=== PATIENT | female | born 1975 | race Caucasian/White ===

== ENCOUNTER → 2020-04-30 07:46 | Outpatient (CLI) | payer OTHER, SELFPAY ==
--- NOTE | ~2020-04-30 | US_ITS ---
EXAMINATION: US abdomen limited EXAM DATE: 04/30/2020 08:16 INDICATION: R10.11 - Right upper quadrant pain TECHNIQUE: Multiple grayscale and Doppler images of the abdomen right upper quadrant were obtained (b y a technologist who performed the scan) and subsequently reviewed. Comparison is made to prior exami nation from 07/15/2013. FINDINGS: The pancreatic head and body are normal in appearance. The pancreatic tail is not visualized. The l iver has normal echogenicity and contour. There is hyperechoic 1 cm right liver dome lesion. There is no evidence of intrahepatic biliary duct dilation. Portal venous flow was seen in the hepatopedal , normal direction and has normal Doppler waveform. No right-sided hydronephrosis. Common bile duct measures 5 mm, which is normal. The gallbladder wall is normal in thickness, with ex pected amount of distention. No sonographic evidence of pericholecystic fluid. There is no cholelit hiases. Technologist performing exam reports patient did not demonstrate sonographic Borrego's sign. Please note that this sign is less reliable in patients who have received pain medication. IMPRESSION: 1. Small right liver lobe lesion. Liver lesions are nonspecific by ultrasound but this most likely b enign finding given appearance and patient's age. Consider 6 month follow-up. 2. No acute findings. Reviewed, dictated and finalized at location B. DEICER ELEMENT WINDER IMPRESSION: 1. Small right liver lobe lesion. Liver lesions are nonspecific by ultrasound but this most likely benign finding given appearance and patient's age. Conside r 6 month follow-up. 2. No acute findings.
== END ==
PROVIDERS: PCP Family Medicine; Visit Provider Physician Assistant
DX: R10.11 Right upper quadrant pain (principal); K76.9 Liver disease, unspecified
CPT/HCPCS: 76705

== ENCOUNTER → 2020-07-08 16:51 | Outpatient (CLI) | payer OTHER, SELFPAY ==
--- NOTE | ~2020-07-08 | MM_ITS ---
EXAMINATION: MM screening camila BI w shakira HISTORY: Screening TECHNIQUE: Craniocaudal and mediolateral oblique 3-D tomosynthesis images were obtained and synthetic 2-D images were generated. CAD analysis was submitted and interpreted. COMPARISON: 08/05/2008 BREAST PARENCHYMAL COMPOSITION: There are scattered areas of fibroglandular density. FINDINGS: There is no evidence of suspicious mass, calcification, or architectural distortion to sugg est malignancy in either breast. There has been no suspicious interval change. IMPRESSION: 1. No mammographic evidence of malignancy. 2. Recommend routine screening mammography in one year. BI-RADS Category 1: Negative Reviewed, dictated and finalized at location A. SELOR/ART THERAPIST
== END ==
PROVIDERS: Visit Provider Nurse Practitioner
DX: Z12.31 Encounter for screening mammogram for malignant neoplasm of breast (principal)
CPT/HCPCS: 77063; 77067

== ENCOUNTER 2020-07-21 01:57 | Outpatient (CLI) | payer OTHER, SELFPAY ==
[2020-07-21 18:12] LABS: SARS-CoV-2 RNA PCR Negative
== END 2020-07-21 01:58 | disposition home or self-care (01) ==
LOC: ANHCOVIDDT 01:57
PROVIDERS: Family Provider Family Medicine; Visit Provider Internal Medicine Gastroenterology
DX: Z01.812 Encounter for preprocedural laboratory examination (principal); Z20.822 Contact with and (suspected) exposure to COVID-19
CPT/HCPCS: C9803; U0003; U0005

== ENCOUNTER 2020-07-24 01:10 | Day surgery (SDC) | payer OTHER, SELFPAY ==
[2020-07-13 13:48] VITALS: BMI 35.9
--- NOTE | 2020-07-22 15:42 | WPDANESEPPF ---
Anes - Initial Pre Proc Eval Procedure: Operation Date: 07/24/20 11:15 Proposed Procedures p Esophagogastroduodenoscopy - Truong Aranda MD Date/Time: 07/22/20 15:42 Surgeon: Truong Aranda MD Pre Op Diagnosis: abdominal pain Patient Data Age: 44 Gender: F Height: 1.57 m Weight: 89 kg Allergies Allergy/AdvReac Type Severity Reaction Status Date / Time latex Allergy Intermediate RASH Verified 07/24/20 09:58 nut - unspecified Allergy Intermediate Swelling Verified 07/24/20 09:58 of Lip/Tongue/Throat Penicillins Allergy Unknown Itching Verified 07/24/20 09:58 Home Medications Medication Instructions Recorded Confirmed Type bupropion HCl 300 mg 24 hr tablet, 300 mg PO QAM 04/29/19 07/24/20 History extended release spironolactone 100 mg tablet 100 mg PO DAILY 04/29/19 07/24/20 History bupropion HCl 150 mg 24 hr tablet, 150 mg PO DAILY tablet 05/20/20 07/24/20 History extended release lamotrigine 25 mg tablet 25 mg PO DAILY tablet 05/20/20 07/24/20 History lorazepam 1 mg tablet 1 mg PO BID tablet 05/20/20 07/24/20 History oxybutynin chloride 5 mg tablet 5 mg PO HS tablet 05/20/20 07/24/20 History dicyclomine 10 mg capsule 10 mg PO TID PRN #30 cap 06/15/20 07/24/20 Rx baclofen 10 mg tablet See Rx Instructions .ROUTE 07/10/20 07/24/20 Rx .COMPLEX #60 tablet ibuprofen See Rx Instructions .ROUTE 07/13/20 07/24/20 History .COMPLEX PRN Patient hx anesthesia problems: none Family hx anesthesia problems: none PMFSH Past Medical History Medical History (Updated 07/22/20 @ 15:42 by Aldo José DO) Abdominal pain Anxiety Back pain Bipolar disorder IBS (irritable bowel syndrome) Liver lesion Mood disorder Schizophrenia Family History Family History Other Asthma Family history of coronary artery disease Hypertension Social History Social History Smoking status: Never smoker Second hand tobacco smoke exposure: No Alcohol intake: never Substance use type: does not use Living arrangements: with family Spiritual care concerns: No Anes - Eval Final PreProcedure Day of Procedure 07/22/20 15:42 Patient weight: obese Heart: regular rate and rhythm Lungs: clear to auscultation and normal air movement Airway: Mallampati scale class II Neurological: alert and oriented Last oral intake: >/= 8 hours ASA classification: III Emergent: no Anesthetic plan: proceed Anesthesia type and monitoring: general GIVS and standard monitoring Informed Consent: The patient's anesthetic plan and its attendant risks and benefits were discussed with the patient/family/POA. Questions were solicited and answers provided to the satisfaction of the patient/family/POA.
[2020-07-24 09:59] VITALS: BP 130/95; PULSE 110; RESP 19; TEMP 36.2; O2SAT 98; BMI 36.5
[2020-07-24] MEDS: LACTATED RINGERS 1,000 ML 150 ML IV CONT (10:10)
--- NOTE | 2020-07-24 11:00 | PM.HPGS ---
History of Present Illness History of Present Illness Consent: Risks, benefits, and alternatives have been discussed and questions answered. Patient agrees to proceed with procedure. Chief complaint: abdominal pain Narrative: Elizabeth Mustafa is a 44 year old female here with intermittent epigastric/chest discomfort on ppi, she also uses ibuprofen daily for back pain Review of Systems Constitutional: Constitutional: Denies headache(s) and Denies weakness Eyes: Eyes: Denies blurry vision ENT: Reports Normal hearing present, Denies headache(s) and Denies neck pain Cardiovascular: Cardiovascular: Denies chest pain and Denies dyspnea Respiratory: Respiratory: Denies dyspnea Gastrointestinal: Gastrointestinal: Reports no additional gastrointestinal complaints Genitourinary: Genitourinary: Denies dysuria Musculoskeletal: Musculoskeletal: Denies neck pain Integumentary/Breasts: Skin/Breast: Denies dry skin Neurologic: Reports Normal hearing present, Denies headache(s) and Denies weakness Psychiatric: Psychiatric: Denies anxiety Endocrine: Endocrine: Denies change in body appearance Hematologic/Lymphatic: Hematologic/Lymphatic: Denies easy bleeding Allergic/Immunologic: Allergic/Immunologic: Denies urticaria PMF Past Medical History Medical History (Updated 07/22/20 @ 15:42 by Aldo José DO) Abdominal pain Anxiety Back pain Bipolar disorder IBS (irritable bowel syndrome) Liver lesion Mood disorder Schizophrenia Family History Family History Other Asthma Family history of coronary artery disease Hypertension Social History Social History Smoking status: Never smoker Second hand tobacco smoke exposure: No Alcohol intake: never Substance use type: does not use Living arrangements: with family Spiritual care concerns: No Meds Home Medications and Allergies Home Medications Medication Instructions Recorded Confirmed Type bupropion HCl 300 mg 24 hr tablet, 300 mg PO QAM 04/29/19 07/24/20 History extended release spironolactone 100 mg tablet 100 mg PO DAILY 04/29/19 07/24/20 History bupropion HCl 150 mg 24 hr tablet, 150 mg PO DAILY tablet 05/20/20 07/24/20 History extended release lamotrigine 25 mg tablet 25 mg PO DAILY tablet 05/20/20 07/24/20 History lorazepam 1 mg tablet 1 mg PO BID tablet 05/20/20 07/24/20 History oxybutynin chloride 5 mg tablet 5 mg PO HS tablet 05/20/20 07/24/20 History dicyclomine 10 mg capsule 10 mg PO TID PRN #30 cap 06/15/20 07/24/20 Rx baclofen 10 mg tablet See Rx Instructions .ROUTE 07/10/20 07/24/20 Rx .COMPLEX #60 tablet ibuprofen See Rx Instructions .ROUTE 07/13/20 07/24/20 History .COMPLEX PRN Allergies Allergy/AdvReac Type Severity Reaction Status Date / Time latex Allergy Intermediate RASH Verified 07/24/20 09:58 nut - unspecified Allergy Intermediate Swelling Verified 07/24/20 09:58 of Lip/Tongue/Throat Penicillins Allergy Unknown Itching Verified 07/24/20 09:58 Vital Signs Vital Signs - 24 hr 07/24/20 09:59 Temperature 97.1 F L Pulse Rate 110 H Respiratory Rate 19 Blood Pressure 130/95 H Pulse Oximetry 98 Exam Const: General: comfortable and no acute distress HENMT: General nose exam: Normal nares present Eyes: General: appearance normal, both eyes and all related structures Neck: Neck: no JVD Resp: Auscultation: clear to auscultation bilaterally Cardio: Rate: regular rate Rhythm: regular rhythm GI: Inspection: non-distended GI Palp: Yes Soft to palpation Skin: General skin exam: normal color Neuro: General: gait normal Speech: normal speech Extrem: General: normal to inspection Psych: Mental Status: mental status grossly normal Assessment and Plan Assessment and plan (1) Abdominal pain: Code(s): R10.9 - Unspecified abdominal pain Status: A
[2020-07-24] MEDS: BENZOCAINE (*SP) 60 ML SPRAY CAN (HURRICAINE) 1 SPRAY MUCOUS MEM (11:02)
[2020-07-24 11:13] VITALS: BP 127/64; PULSE 94; RESP 14; O2SAT 97
[2020-07-24 11:23] VITALS: BP 110/78; PULSE 85; RESP 15; O2SAT 100
== END 2020-07-24 11:46 | disposition home or self-care (01) ==
PROVIDERS: Family Provider Family Medicine; PCP Family Medicine; Visit Provider Internal Medicine Gastroenterology
PROC: 0DJ08ZZ Inspection of Upper Intestinal Tract, Via Natural or Artificial Opening Endoscopic (ICD-10-PCS; CPT 43235; principal; 2020-07-24 11:15)
DX: R13.10 Dysphagia, unspecified (principal); K29.50 Unspecified chronic gastritis without bleeding; K25.9 Gastric ulcer, unspecified as acute or chronic, without hemorrhage or perforation; K26.9 Duodenal ulcer, unspecified as acute or chronic, without hemorrhage or perforation; F41.9 Anxiety disorder, unspecified; F31.9 Bipolar disorder, unspecified; K58.9 Irritable bowel syndrome, unspecified; K76.9 Liver disease, unspecified; F20.9 Schizophrenia, unspecified; E66.9 Obesity, unspecified; Z68.36 Body mass index [BMI] 36.0-36.9, adult
CPT/HCPCS: 43239; 87081; 88305; C9803; J2001; J2704; J7120; U0003; U0005

== ENCOUNTER 2020-09-03 13:01 | Outpatient (CLI) | payer OTHER, SELFPAY ==
--- NOTE | ~2020-09-03 | XR_ITS ---
EXAMINATION: XR hip RT min 2V DATE: 09/03/2020 13:29 INDICATION: Right hip pain. TECHNIQUE: 2 views of right hip on 3 radiographs were obtained. COMPARISON: None. FINDINGS: Bone alignment is normal. No fracture. Right hip joint space is normal. Surgical clips over lie the pelvis. IMPRESSION: 1. Normal right hip. Reviewed, dictated and finalized at location A. RACTS ATTORNEY IMPRESSION: 1. Normal right hip.
== END 2020-09-03 13:02 ==
LOC: MICIMG 13:02
PROVIDERS: PCP Family Medicine; Visit Provider Anesthesiology
DX: M25.551 Pain in right hip (principal)
CPT/HCPCS: 73502

== ENCOUNTER 2021-02-09 10:46 | Outpatient (CLI) | payer OTHER, SELFPAY ==
--- NOTE | ~2021-02-09 | US_ITS ---
US right upper quadrant INDICATION: Liver disease PROCEDURE: Realtime right upper abdominal ultrasound. COMPARISON: No prior studies for comparison. FINDINGS: The pancreas is normal without focal mass or pancreatic ductal dilation. There is a small hyperechoic mass of the right hepatic lobe measuring 11 mm, likely benign hemangioma in the absence o f known malignancy. There is normal directional flow in the portal vein. The gallbladder is normal without stones, gallbladder wall thickening or pericholecystic fluid. Comm on bile duct measures 6 mm. No sonographic Borrego's sign. IMPRESSION: 1: Normal limited abdominal ultrasound. 2: Stable hyperechoic 11 mm liver lesion right hepatic lobe, likely benign hemangioma in the absence of known malignancy. Reviewed, dictated and finalized at location A. IMPRESSION: 1: Normal limited abdominal ultrasound. 2: Stable hyperechoic 11 mm liver lesion right hepatic lobe, likely benign yolanda ngioma in the absence of known malignancy.
== END 2021-02-09 10:47 ==
PROVIDERS: PCP Family Medicine; Visit Provider Internal Medicine Gastroenterology
DX: K76.9 Liver disease, unspecified (principal)
CPT/HCPCS: 76705

== ENCOUNTER 2021-08-25 09:35 | Outpatient (CLI) | payer OTHER, SELFPAY ==
--- NOTE | 2021-08-25 11:00 | NEURO_ITS ---
Impression: # Complains of numbness and pain in hands. # Right supra carpal tunnel median neuropathy. # Mild evolving right Carpal Tunnel Syndrome. # No ulnar neuropathy. # Normal needle/EMG exam. Nerve Conduction Studies Anti Sensory Summary Table Stim Site NR Peak (ms) P-T Amp (?V) Site1 Site2 Delta-P (ms) Dist (cm) Cliff (m/s) Left Median Anti Sensory (2-3nd Digit) Wrist 2.6 14.1 Wrist 2-3nd Digit 2.6 14.0 54 Wrist 2.5 5.1 Wrist 2-3nd Digit 2.6 14.0 54 Right Median Anti Sensory (2-3nd Digit) Wrist 2.8 72.7 Wrist 2-3nd Digit 2.8 14.0 50 Wrist 2.5 20.7 Wrist 2-3nd Digit 2.8 14.0 50 Left Radial Anti Sensory (Base 1st Digit) Wrist 1.8 30.4 Wrist Base 1st Digit 1.8 0.0 Right Radial Anti Sensory (Base 1st Digit) Wrist 1.9 21.8 Wrist Base 1st Digit 1.9 0.0 Left Ulnar Anti Sensory (5th Digit) Wrist 2.2 76.3 Wrist 5th Digit 2.2 14.0 64 Right Ulnar Anti Sensory (5th Digit) Wrist 2.0 71.7 Wrist 5th Digit 2.0 14.0 70 Motor Summary Table Stim Site NR Onset (ms) O-P Amp (mV) Site1 Site2 Delta-0 (ms) Dist (cm) Cliff (m/s) Left Median Motor (Abd Poll Brev) Wrist 3.1 2.1 Elbow Wrist 4.6 26.0 57 Elbow 7.7 1.8 Right Median Motor (Abd Poll Brev) Wrist 3.1 1.8 Elbow Wrist 6.0 26.0 43 Elbow 9.1 1.2 Left Ulnar Motor (Abd Dig Minimi) Wrist 2.4 6.8 A Elbow Wrist 4.4 27.0 61 A Elbow 6.8 5.6 Right Ulnar Motor (Abd Dig Minimi) Wrist 2.1 7.6 A Elbow Wrist 4.5 27.0 60 A Elbow 6.6 6.0 F Wave Studies NR F-Lat (ms) L-R F-Lat (ms) Left Median (Mrkrs) (Abd Poll Brev) 25.71 0.02 Right Median (Mrkrs) (Abd Poll Brev) 25.73 0.02 Left Ulnar (Mrkrs) (Abd Dig Min) 25.12 0.88 Right Ulnar (Mrkrs) (Abd Dig Min) 24.24 0.88 EMG Side Muscle Nerve Root Ins Act Fibs Amp Dur Recrt Comment Right 1stDorInt Ulnar C8-T1 Nml Nml Nml Nml Nml Right Ext Indicis Radial (Post Int) C7-8 Nml Nml Nml Nml Nml Right Ext Digitorum Radial (Post Int) C7-8 Nml Nml Nml Nml Nml Right BrachioRad Radial C5-6 Nml Nml Nml Nml Nml Right PronatorTeres Median C6-7 Nml Nml Nml Nml Nml Right Abd Poll Brev Median C8-T1 Nml Nml Nml Nml Nml Left 1stDorInt Ulnar C8-T1 Nml Nml Nml Nml Nml Left Ext Indicis Radial (Post Int) C7-8 Nml Nml Nml Nml Nml Left Ext Digitorum Radial (Post Int) C7-8 Nml Nml Nml Nml Nml Left BrachioRad Radial C5-6 Nml Nml Nml Nml Nml Left PronatorTeres Median C6-7 Nml Nml Nml Nml Nml Left Abd Poll Brev Median C8-T1 Nml Nml Nml Nml Nml MTDD
== END 2021-08-25 09:36 | disposition home or self-care (01) ==
PROVIDERS: PCP Family Medicine; Visit Provider Physician Assistant
DX: R20.2 Paresthesia of skin (principal); G56.01 Carpal tunnel syndrome, right upper limb
CPT/HCPCS: 95886; 95911

== ENCOUNTER → 2021-11-30 11:02 | Outpatient (CLI) | payer OTHER, SELFPAY ==
--- NOTE | ~2021-11-30 | XR_ITS ---
EXAMINATION: XR chest 2V 11/30/2021 11:31 INDICATION: Chest pain PROCEDURE: 2 view chest COMPARISON: 03/10/2011 FINDINGS: The lungs are clear. The cardiomediastinal silhouette is within normal limits. There are no pleural effusions. There is no pneumothorax suspected. IMPRESSION: 1: NO ACUTE CARDIOPULMONARY DISEASE. Reviewed, dictated and finalized at location B.
== END ==
PROVIDERS: PCP Family Medicine; Visit Provider Physician Assistant Medical
DX: R07.9 Chest pain, unspecified (principal)
CPT/HCPCS: 71046

== ENCOUNTER 2021-12-28 11:40 | Outpatient (CLI) | payer OTHER, SELFPAY ==
--- NOTE | 2021-12-28 | ECG_ITS ---
Measurements Intervals [place] Rate: 72 P: 54 NE: 199 QRS: 54 QRSD: 103 T: 37 QT: 375 QTc: 412 Interpretive Statements SINUS RHYTHM NORMAL ECG Electronically Signed On 12-28-2021 12:55:56 CDT by Giancarlo So D.O.
[2021-12-28 12:26] LABS: Anion Gap 6 mmol/L (8-16); Blood Urea Nitrogen 13 mg/dL (7-17); Carbon Dioxide 27 mmol/L (22-30); Chloride 103 mmol/L (98-107); Estimated Glomerular Filt Rate > 60; Glucose 90 mg/dL (65-110); Sodium 136 mmol/L (137-145)
== END 2021-12-28 11:41 | disposition home or self-care (01) ==
PROVIDERS: PCP Family Medicine; Visit Provider Orthopaedic Surgery Hand Surgery
DX: M25.531 Pain in right wrist (principal)
CPT/HCPCS: 36415; 80048; 93005

== ENCOUNTER 2022-08-26 09:18 | Outpatient (CLI) | payer OTHER, SELFPAY ==
--- NOTE | ~2022-08-26 | XR_ITS ---
Clinical Indication: Dyspnea PA and lateral views of the chest: Comparison: 11/30/2021 Findings: The lungs are clear, without evidence of focal consolidation or pleural effusion. Cardiome diastinal silhouette is within normal limits. Bones and soft tissues are unremarkable. Impression: Normal chest. Reviewed, dictated and finalized at [facility]. LE MACHINE OPERATOR Impression: Normal chest.
--- NOTE | 2022-08-26 09:46 | ECG_ITS ---
Measurements Intervals [place] Rate: 61 P: 68 CT: 201 QRS: 50 QRSD: 101 T: 37 QT: 394 QTc: 398 Interpretive Statements SINUS RHYTHM NORMAL ECG COMPARED TO ECG 12/28/2021 12:11:44 NO SIGNIFICANT CHANGES Electronically Signed On 08-26-2022 10:04:11 TANK INSPECTOR by Giancarlo So D.O.
== END 2022-08-26 09:19 | disposition home or self-care (01) ==
PROVIDERS: PCP Family Medicine; Visit Provider Physician Assistant Medical
DX: R06.00 Dyspnea, unspecified (principal); R00.2 Palpitations
CPT/HCPCS: 71046; 93005

== ENCOUNTER → 2023-02-13 09:42 | Outpatient (CLI) | payer OTHER, SELFPAY ==
--- NOTE | ~2023-02-13 | CT_ITS ---
EXAMINATION: CT abdomen pelvis w con INDICATION: Rectal pain TECHNIQUE: Computed tomographic images of the abdomen and pelvis were obtained after the administrati on of 100 cc of Omnipaque 350 intravenous contrast. The dose-length product (DLP) was 534.75 mGy-cm. Automated exposure control and iterative reconstruction technique were employed. COMPARISON: None available FINDINGS: Minimal dependent atelectasis is present in the lung bases. The heart size is normal. There is a 7 mm cyst of the right hepatic lobe. The spleen, pancreas, gallbladder, and adrenal glands are normal. No pathologically enlarged abdominal or pelvic lymph nodes are identified. No free intraperit black gas or evidence of bowel obstruction. There are changes of hysterectomy. There is severe lumbar spondylosis at L5-S1. IMPRESSION: 1. No CT correlate for the patient's symptoms. Reviewed, dictated and finalized at location A.
[2023-02-13 10:02] LABS: Estimated Glomerular Filt Rate 60
== END ==
PROVIDERS: PCP Family Medicine; Visit Provider Nurse Practitioner Family
DX: K62.89 Other specified diseases of anus and rectum (principal); K62.5 Hemorrhage of anus and rectum
CPT/HCPCS: 74177; Q9967

== ENCOUNTER 2023-04-21 01:50 | Day surgery (SDC) | payer OTHER, SELFPAY ==
[2023-04-11 13:57] VITALS: BMI 27.1
[2023-04-21 08:39] VITALS: BP 95/74; PULSE 84; RESP 16; TEMP 36.5; O2SAT 100
[2023-04-21] MEDS: LACTATED RINGERS 1,000 ML 150 ML IV CONT (08:46)
--- NOTE | 2023-04-21 08:55 | WPDANESEPPF ---
Anes - Initial Pre Proc Eval Procedure: Operation Date: 04/21/23 09:45 Proposed Procedures p Screening Colonoscopy - Truong Aranda MD Date/Time: 04/21/23 08:55 Surgeon: Truong Aranda MD Pre Op Diagnosis: neoplasm screening Patient Data Age: 47 Gender: F Height: 1.6 m Weight: 66.2 kg Last Vital Signs Temp 97.7 F 04/21/23 08:39 Pulse 84 04/21/23 08:39 Resp 16 04/21/23 08:39 BP 95/74 L 04/21/23 08:39 Pulse Ox 100 04/21/23 08:39 O2 Del Method Room Air 04/21/23 08:39 Allergies Allergy/AdvReac Type Severity Reaction Status Date / Time tree nut Allergy Severe mouth Verified 04/21/23 08:36 swelling latex Allergy Intermediate RASH Verified 04/21/23 08:36 Penicillins Allergy Unknown Itching Verified 04/21/23 08:36 Home Medications Medication Instructions Recorded Confirmed Type spironolactone 100 mg tablet 100 mg PO DAILY 04/29/19 04/21/23 History lorazepam 1 mg tablet 1 mg PO BID 05/20/20 04/21/23 History buspirone 10 mg tablet 10 mg PO BID 05/31/21 04/21/23 History trazodone 50 mg tablet 50 mg PO QHS 05/31/21 04/21/23 History spirometers and accessories #1 ea 11/30/21 04/21/23 Rx omeprazole 20 mg capsule,delayed See Rx Instructions .Route 08/04/22 04/21/23 Rx release .COMPLEX #180 caps albuterol sulfate 90 mcg/actuation See Rx Instructions .Route 09/22/22 04/21/23 Rx aerosol inhaler .COMPLEX #8.5 ea linaclotide 145 mcg capsule See Rx Instructions .Route 11/28/22 04/21/23 Rx (Linzess) .COMPLEX #30 caps baclofen 10 mg tablet See Rx Instructions .Route 12/12/22 04/21/23 Rx .COMPLEX #180 tabs lisinopril 5 mg tablet See Rx Instructions .Route 01/21/23 04/21/23 Rx .COMPLEX #90 tabs dicyclomine 10 mg capsule 10 mg PO TID PRN abdominal 04/09/23 04/21/23 Rx discomfort #30 caps bupropion HCl 150 mg 24 hr tablet, 150 mg PO DAILY 04/11/23 04/21/23 History extended release bupropion HCl 300 mg 24 hr tablet, 300 mg PO DAILY 04/11/23 04/21/23 History extended release oxybutynin chloride 5 mg tablet 5 mg PO HS 04/11/23 04/21/23 History Patient hx anesthesia problems: none Family hx anesthesia problems: none Results Review: All pre-operative results and documents have been reviewed as part of the pre-operative evaluation. [facility] Past Medical History Medical History Abdominal pain Anxiety Back pain Bipolar disorder Costochondritis, acute Cough (11/14/21) Essential hypertension GERD (gastroesophageal reflux disease) IBS (irritable bowel syndrome) Liver lesion Mood disorder Obesity (BMI 30-39.9) Paresthesia of hand, bilateral Schizophrenia Surgical History Surgical History History of carpal tunnel repair Family History Family History Other Asthma Family history of coronary artery disease Hypertension Social History Social History Smoking status: Never smoker Second hand tobacco smoke exposure: No Alcohol intake: current Drinks per week: 1 Substance use: never Substance use type: does not use Lack of Transportation: No Lack of Food: Never True Current Housing: I Have Housing Concerned About Future Housing: No Difficulty Paying Gas/Electric Bills: No Difficulty Paying for Meds: No Currently Unemployed: No Education: Trade/Vocational Certificate Difficulty w/ Childcare or Family Care: No Living arrangements: with family Gender identity (if verbalized by the patient): Female Sexual Orientation (if Verbalized by the Patient): Straight or Heterosexual Spiritual care concerns: No Agree to blood products: Yes Anes - Eval Final PreProcedure Day of Procedure 04/21/23 08:55 Patient weight: normal Heart: regular rate and rhythm Lungs: clear to auscultation Airway: Mallampati
--- NOTE | 2023-04-21 09:11 | PM.HPGS ---
History of Present Illness History of Present Illness Consent: Risks, benefits, and alternatives have been discussed and questions answered. Patient agrees to proceed with procedure. Chief complaint: neoplasm screening Narrative: Elizabeth Mustafa is a 47 year old female here for screening colonoscopy Review of Systems Constitutional: Constitutional: Denies headache(s) and Denies weakness Eyes: Eyes: Denies blurry vision ENT: Reports Normal hearing present, Denies headache(s) and Denies neck pain Cardiovascular: Cardiovascular: Denies chest pain and Denies dyspnea Respiratory: Respiratory: Denies dyspnea Gastrointestinal: Gastrointestinal: Reports no additional gastrointestinal complaints Genitourinary: Genitourinary: Denies dysuria Musculoskeletal: Musculoskeletal: Denies neck pain Integumentary/Breasts: Skin/Breast: Denies dry skin Neurologic: Reports Normal hearing present, Denies headache(s) and Denies weakness Psychiatric: Psychiatric: Denies anxiety Endocrine: Endocrine: Denies change in body appearance Hematologic/Lymphatic: Hematologic/Lymphatic: Denies easy bleeding Allergic/Immunologic: Allergic/Immunologic: Denies urticaria PMF Past Medical History Medical History (Updated 04/21/23 @ 09:12 by Truong Aranda MD) Abdominal pain Anxiety Back pain Bipolar disorder Colon cancer screening Costochondritis, acute Cough (11/14/21) Essential hypertension GERD (gastroesophageal reflux disease) IBS (irritable bowel syndrome) Liver lesion Mood disorder Obesity (BMI 30-39.9) Paresthesia of hand, bilateral Schizophrenia Surgical History Surgical History History of carpal tunnel repair Family History Family History Other Asthma Family history of coronary artery disease Hypertension Social History Social History Smoking status: Never smoker Second hand tobacco smoke exposure: No Alcohol intake: current Drinks per week: 1 Substance use: never Substance use type: does not use Lack of Transportation: No Lack of Food: Never True Current Housing: I Have Housing Concerned About Future Housing: No Difficulty Paying Gas/Electric Bills: No Difficulty Paying for Meds: No Currently Unemployed: No Education: Trade/Vocational Certificate Difficulty w/ Childcare or Family Care: No Living arrangements: with family Gender identity (if verbalized by the patient): Female Sexual Orientation (if Verbalized by the Patient): Straight or Heterosexual Spiritual care concerns: No Agree to blood products: Yes Meds Home Medications and Allergies Home Medications Medication Instructions Recorded Confirmed Type spironolactone 100 mg tablet 100 mg PO DAILY 04/29/19 04/21/23 History lorazepam 1 mg tablet 1 mg PO BID 05/20/20 04/21/23 History buspirone 10 mg tablet 10 mg PO BID 05/31/21 04/21/23 History trazodone 50 mg tablet 50 mg PO QHS 05/31/21 04/21/23 History spirometers and accessories #1 ea 11/30/21 04/21/23 Rx omeprazole 20 mg capsule,delayed See Rx Instructions .Route 08/04/22 04/21/23 Rx release .COMPLEX #180 caps albuterol sulfate 90 mcg/actuation See Rx Instructions .Route 09/22/22 04/21/23 Rx aerosol inhaler .COMPLEX #8.5 ea linaclotide 145 mcg capsule See Rx Instructions .Route 11/28/22 04/21/23 Rx (Linzess) .COMPLEX #30 caps baclofen 10 mg tablet See Rx Instructions .Route 12/12/22 04/21/23 Rx .COMPLEX #180 tabs lisinopril 5 mg tablet See Rx Instructions .Route 01/21/23 04/21/23 Rx .COMPLEX #90 tabs dicyclomine 10 mg capsule 10 mg PO TID PRN abdominal 04/09/23 04/21/23 Rx discomfort #30 caps bupropion HCl 150 mg 24 hr tablet, 150 mg PO DAILY 04/11/23 04/21/23 History extended release bupropion HCl 300 mg 24 hr tablet, 300 mg PO DAILY 04/11/23 04/21/23 History e
[2023-04-21 09:30] VITALS: BP 108/69; PULSE 86; RESP 20; O2SAT 100
[2023-04-21 09:40] VITALS: BP 105/72; PULSE 79; RESP 21; O2SAT 100
[2023-04-21 09:50] VITALS: BP 106/79; PULSE 78; RESP 21; O2SAT 100
== END 2023-04-21 09:55 | disposition home or self-care (01) ==
PROVIDERS: PCP Family Medicine; Visit Provider Internal Medicine Gastroenterology
PROC: 0DJD8ZZ Inspection of Lower Intestinal Tract, Via Natural or Artificial Opening Endoscopic (ICD-10-PCS; CPT 45378; principal; 2023-04-21 09:45)
DX: Z12.11 Encounter for screening for malignant neoplasm of colon (principal); K64.8 Other hemorrhoids; I10 Essential (primary) hypertension; K21.9 Gastro-esophageal reflux disease without esophagitis; F20.9 Schizophrenia, unspecified; F31.9 Bipolar disorder, unspecified; F41.9 Anxiety disorder, unspecified; Z79.51 Long term (current) use of inhaled steroids
CPT/HCPCS: 45378; J2704; J7120

== ENCOUNTER 2023-09-05 12:40 | Outpatient (CLI) | payer OTHER, SELFPAY ==
--- NOTE | ~2023-09-05 | XR_ITS ---
Clinical Indication: Chest pain PA and lateral views of the chest: Comparison: 08/26/2022 Findings: The lungs are clear, without evidence of focal consolidation or pleural effusion. Cardiome diastinal silhouette is within normal limits. Bones and soft tissues are unremarkable. Impression: Normal chest. Reviewed, dictated and finalized at [facility]. Impression: Normal chest.
--- NOTE | 2023-09-05 13:02 | ECG_ITS ---
Measurements Intervals [place] Rate: 84 P: 66 HI: 189 QRS: 60 QRSD: 88 T: 40 QT: 338 QTc: 400 Interpretive Statements SINUS RHYTHM POSSIBLE LEFT ATRIAL ENLARGEMENT BORDERLINE ECG COMPARED TO ECG 08/26/2022 10:00:50 NO SIGNIFICANT CHANGES Electronically Signed On 09-05-2023 13:41:43 CDT by Giancarlo So D.O.
== END 2023-09-05 12:41 | disposition home or self-care (01) ==
PROVIDERS: PCP Family Medicine; Visit Provider Physician Assistant Medical
DX: R07.9 Chest pain, unspecified (principal)
CPT/HCPCS: 71046; 93005

== ENCOUNTER 2023-09-20 14:19 | Outpatient (CLI) | payer OTHER, SELFPAY ==
--- NOTE | ~2023-09-20 | XR_ITS ---
EXAMINATION: [id number] DATE: 09/20/2023 14:56 INDICATION: Chondrocostal junction syndrome. TECHNIQUE: A frontal view of the chest and 2 views on 3 radiographs of the left ribs were obtained. COMPARISON: Chest 2 views 09/05/2023, CT abdomen and pelvis 02/13/2023 FINDINGS: There is no pneumonia, pleural effusion, or pneumothorax. The heart size is normal. There i s a fracture of left sixth rib. There is an old fracture deformity of left fifth rib. IMPRESSION: 1. Acute fracture of left sixth rib. Reviewed, dictated and finalized at location A.
== END 2023-09-20 14:20 ==
PROVIDERS: PCP Family Medicine; Visit Provider Physician Assistant Medical
DX: M94.0 Chondrocostal junction syndrome [Tietze] (principal); S22.32XD Fracture of one rib, left side, subsequent encounter for fracture with routine healing; X58.XXXD Exposure to other specified factors, subsequent encounter
CPT/HCPCS: 71101

== ENCOUNTER 2024-02-13 18:34 | Emergency (ER) | payer OTHER, SELFPAY ==
--- NOTE | ~2024-02-13 | XR_ITS ---
EXAMINATION: XR finger 3rd LT min 2V DATE: 02/13/2024 18:57 INDICATION: Pain and bruising at the left third digit TECHNIQUE: Dorsal palmar, lateral and 2 oblique views of the left third digit were obtained COMPARISON: None FINDINGS: Nondisplaced transverse fracture across the tuft of the left third distal phalanx. Alignment remains essentially anatomic. No other fractures identified. Joint spaces are normal. Mild soft tissue swelli ng about the third distal phalanx. IMPRESSION: 1. Nondisplaced fracture across the tuft of the left third distal phalanx. Reviewed, dictated and finalized at location A.
[2024-02-13 18:45] VITALS: BP 108/80; PULSE 82; RESP 16; TEMP 36.7; O2SAT 100
[2024-02-13 18:50] VITALS: BP 108/80; PULSE 82; RESP 16; TEMP 36.7; O2SAT 100
--- NOTE | 2024-02-13 19:16 | ED.UPPEXIN ---
HPI - Extremity Injury (Upper) General Chief Complaint: Extremity Injury, Upper Stated Complaint: left middle finger injured Time Seen by Provider: 02/13/24 19:16 Source: patient, RN notes reviewed and old records reviewed Mode of arrival: ambulatory Limitations: no limitations History of Present Illness HPI narrative: 48-year-old female presents to the [facility] with complaints of pain, swelling to the left middle finger, tip. Patient jammed finger between 2 shopping carts Related Data Home Medications Medication Instructions Recorded Confirmed spironolactone 100 mg tablet 100 mg PO DAILY 04/29/19 02/13/24 lorazepam 1 mg tablet 1 mg PO BID 05/20/20 02/13/24 buspirone 10 mg tablet 10 mg PO BID 05/31/21 02/13/24 trazodone 50 mg tablet 50 mg PO QHS 05/31/21 02/13/24 bupropion HCl 150 mg 24 hr tablet, 150 mg PO DAILY 04/11/23 02/13/24 extended release bupropion HCl 300 mg 24 hr tablet, 300 mg PO DAILY 04/11/23 02/13/24 extended release oxybutynin chloride 5 mg tablet 5 mg PO HS 04/11/23 02/13/24 Allergies Allergy/AdvReac Type Severity Reaction Status Date / Time tree nut Allergy Severe mouth Verified 02/13/24 18:46 swelling latex Allergy Intermediate RASH Verified 02/13/24 18:46 Penicillins Allergy Unknown Itching Verified 02/13/24 18:46 Review of Systems Review of Systems: All systems reviewed & are unremarkable except as noted in HPI and below Constitutional: Constitutional: Reports no additional constitutional complaints Eyes: Eyes: Reports no additional eye complaints ENT: Reports system reviewed and no additional complaints, except as documented Cardiovascular: Cardiovascular: Reports no additional cardiovascular complaints, Denies chest pain and Denies dyspnea Respiratory: Respiratory: Reports no additional respiratory complaints, Denies chest congestion, Denies cough and Denies dyspnea Gastrointestinal: Gastrointestinal: Reports no additional gastrointestinal complaints, Denies abdominal pain, Denies nausea and Denies vomiting Musculoskeletal: Musculoskeletal: Reports as per HPI Integumentary/Breasts: Skin/Breast: Reports system reviewed and no additional complaints, except as docu Neurologic: Reports system reviewed and no additional complaints, except as documented Psychiatric: Psychiatric: Reports no additional psychiatric complaints Allergic/Immunologic: Allergic/Immunologic: Reports no additional allergic/immunologic complaints PMFSH Past Medical History Medical History Abdominal pain Anxiety Back pain Bipolar disorder Colon cancer screening Costochondritis, acute Cough (11/14/21) Essential hypertension GERD (gastroesophageal reflux disease) IBS (irritable bowel syndrome) Liver lesion Mood disorder Obesity (BMI 30-39.9) Paresthesia of hand, bilateral Schizophrenia Surgical History Surgical History History of carpal tunnel repair Family History Family History Other Asthma Family history of coronary artery disease Hypertension Social History Social History Smoking status: Never smoker Second hand tobacco smoke exposure: No Alcohol intake: current Drinks per week: 1 Substance use: never Substance use type: does not use Lack of Transportation: No Lack of Food: Never True Current Housing: I Have Housing Concerned About Future Housing: No Difficulty Paying Gas/Electric Bills: No Difficulty Paying for Meds: No Currently Unemployed: No Education: Trade/Vocational Certificate Difficulty w/ Childcare or Family Care: No Living arrangements: with family Gender identity (if verbalized by the patient): Female Sexual Orientation (if Verbalized by the Patient): Straight or Heterosexual Spiritual care concerns: No Agree to bl
== END 2024-02-13 19:35 | disposition home or self-care (01) ==
PROVIDERS: Emergency Provider Nurse Practitioner; PCP Family Medicine
DX: S62.653A Nondisplaced fracture of middle phalanx of left middle finger, initial encounter for closed fracture (principal); X58.XXXA Exposure to other specified factors, initial encounter; S60.132A Contusion of left middle finger with damage to nail, initial encounter; I10 Essential (primary) hypertension; K21.9 Gastro-esophageal reflux disease without esophagitis; E66.9 Obesity, unspecified; Z68.27 Body mass index [BMI] 27.0-27.9, adult; F41.9 Anxiety disorder, unspecified
CPT/HCPCS: 29130; 73140; 99213; 99214; G0463

== ENCOUNTER 2024-07-24 11:21 | Emergency (ER) | payer OTHER, SELFPAY ==
[2024-07-24 11:32] VITALS: BP 105/67; PULSE 62; RESP 18; TEMP 37.2; O2SAT 98
--- OUTSIDE RECORDS SUMMARY | 2024-07-24 12:42 | XMS_ITS | Continuity of Care Document ---
Author Organization [facility] Address [address] [place] [address] [address] [place] [address] Phone Care Team Providers Care Flotation Operator Name Role Phone Hui OD, Alexander Unavailable Unavailable Advance Directives Directive Yes / No Effective Date File Name No Information Encounters Encounter Description Practice Location Reason(s) For Visit Diagnoses Date Provider Providers Copied on Encounter [facility], [id number] [place] [address] [address], [place], [place], [id number], [place] tel:[phone] [facility] No Information Sep-2 9-200 5 Hui OD Alexander. [address] , [address], [place], [address], [place]. tel:[phone] Family History Family Member Type Diagnosis Age At Onset No Information Payers Payer name Insurance type Covered green party ID Authoriza tion(s) [employer] Plan CI [id number] Social History Type Description Quantity Date Captured Comments Sex Female Smoking Status No Information Chief Complaint And Reason For Visit No Information Reason For Referral Reason For Referral No Information History Of Present Illness Encounter Date Complaint History Of Prese nt Illness No Information Functional Status Date Functional Assessmen t No Information Instructions Date Instruction Additional Infor mation No Information Assessments Type Assessment Date No Information Patient Care Teams Name Effective Dates (start - stop) Status Members No Information
--- OUTSIDE RECORDS SUMMARY | 2024-07-24 12:42 | XMS_ITS | Clinical Summary ---
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 Gender Identity Not on file Sexual Orientation Not on file Plan of Treatment Health Maintenance Due Date Last Done Comments DTAP/TDAP/TD VACCINES (1 - Tdap) 1996 HEPATITIS B VACCINES (1 of 3 - 19+ 3-dose series) 1996 CERVICAL CANCER SCREENING 2007 BREAST CANCER SCREENING 2017 COLORECTAL SCREENING 2022 Colorectal Cancer Screening 2022 FIT-DNA Q 3 years 2022 FIT/FOBT Q 1 year 2022 Flex Sig/CT Colonography Q 5 years 2022 INFLUENZA VACCINE (#1) 2024 HPV VACCINES Aged Out No longer eligi ble based on patient's age to complete this topic PNEUMOCOCCAL VACCINE 0-64 YEARS Aged Out No longer eligible based on patient's age to complete this topic Insurance BCBS BLUE ACCESS/TRUE BLUE PPO Care Teams Checkroom Attendant Relationship Specialty Start Date End Date Sun Curry MD [address] [place] [address] PCP - General Family Practice 03/07/11
--- OUTSIDE RECORDS SUMMARY | 2024-07-24 12:42 | XMS_ITS | Referral Summary ---
Author Organization [facility] Address [address] [place] [address] Care Team Providers Care Fire Operations Forester Name Role Phone Sun Curry MD Primary Care Provider [phone] Allergies Active Allergy Reactions Criticality Noted Date Comments Penicillins Itching Low 10/30/2019 Medications spironolactone (ALDACTONE) 100 mg tablet Take 1 tablet (100 mg total) by mouth daily Active LORazepam (ATIVAN) 1 mg tablet Take 1 tablet (1 mg total) by mouth 3 (three) times a day as needed for anxiety Active buPROPion XL (WELLBUTRIN XL) 150 mg 24 hr tablet Take 1 tablet (150 mg total) by mouth daily Active buPROPion XL (WELLBUTRIN XL) 300 mg 24 hr tablet Take 1 tablet (300 mg total) by mouth daily Active busPIRone (BUSPAR) 10 mg tabletIndicatio ns:Generalized Anxiety Disorder Take 1 tablet (10 mg total) by mouth 2 (two) times a day Active ibuprofen (ibuprofen) 200 mg tab/cap Take 1 tablet/capsu le (200 mg total) by mouth 3 (three) times a day Active QUEtiapine (SEROquel) 50 mg tablet Take 1 tablet (50 mg total) by mouth nightly Active baclofen (LIORESAL) 10 mg tablet Take 1 tablet (10 mg total) by mouth 3 (three) times a day Active calcium carbonate-vit D3-min 600 mg calcium- 200 unit tablet Take by mouth daily Active ferrous sulfate (IRON ORAL) Take by mouth daily Active cariprazine (Vraylar) 1.5 mg capsule Take 1.5 mg by mouth daily Active oxyBUTYnin (DITROPAN) 5 mg tablet Take 1 tablet (5 mg total) by mouth Active traZODone (DESYREL) 50 mg tablet Take 1 tablet (50 mg total) by mouth nightly 03/19/2024 Active omeprazole (PriLOSEC) 20 mg capsule Take 1 capsule (20 mg total) by mouth 2 (two) times a day 03/19/2024 Active lisinopriL (PRINIVIL,ZESTR IL) 5 mg tablet Take 1 tablet (5 mg total) by mouth daily 02/03/2024 Active hydrOXYzine (ATARAX) 25 mg tablet Take 1 tablet (25 mg total) by mouth 2 (two) times a day 04/04/2024 Active dicyclomine (BENTYL) 10 mg capsule Take 1 capsule (10 mg total) by mouth 03/25/2024 Active calcium-vitamin D3-vitamin K 500 mg-1,000 unit-40 mcg tablet,chewable Take by mouth Active Active Problems Problem Noted Date Diagnosed Date Low back pain, non-specific 10/30/2019 Assessment & Plan (10/30/2019 4:05 PM CDT): Ms. Mustafa has low back pain that significantly affects her activities. She has some anterior right thigh pain that corresponds to this. I do not see a definite radiculopathy that corresponds to compression in her lumbar spine. Given her young age, I think that she is unlikely to see benefit from surgical intervention on her back. We discussed that low back surgery for back pain has very mixed results. I would not recommend surgical intervention on her back. I would recommend that she continue with stretches and pain management. I have shown her some piriformis stretches and she will look up further stretches to do at home. I have encouraged her to use the pull the summer to stretch in strength in her muscles without forces on her back, hips and legs. We will not set up a scheduled follow-up appointment. 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 Gender Identity Not on file Sexual Orientation Not on file Occupation Industry Job Start Date Job End Date Stay at home mom Not on file Not on file Not on file Last Filed Vital Signs Vital Sign Reading Time Taken Comments Blood Pressure 111/74 04/09/2024 3:10 PM CDT Pulse 88 04/09/2024 3:10 PM CDT Temperature 36.7 ??C (98 ??F) 04/09/2024 3:10 PM CDT Respiratory Rate 18 04/09/2024 3:10 PM CDT Oxygen Saturation 98% 04/09/2024 3:10 PM CDT Inhaled Oxygen Concentration - - Weight 73.6 kg (162 lb 4.8 oz) 04/09/2024 3:10 P M CDT Height 159.4 cm (5' 2.76 ) 04/09/2024 3:10 PM CD T Body Mass Index 28.97 04/09/2024 3:10 PM CDT Plan of Treatment Not on file Insurance [employer] (ABAM) [employer] OPEN ACCESS [facility] Address: [facility] [address] [place] [address] [facility] OPEN ACCESS Care Teams Fire Operations Forester Relationship Specialty Start Date End Date Sun Curry MD PCP - General Family Medicine 10/30/19
--- OUTSIDE RECORDS SUMMARY | 2024-07-24 12:42 | XMS_ITS | Data Portability ---
Author Organization [facility] [employer], Main Office Address [address] [place] [address] Care Team Providers Care Dermatology Physician Assistant Name Role Phone LANCE JONES Primary Care Provider [phone] LANCE JONES Referring Provider Assessment Encounter Date Assessment Date Assessment LastModified by Organization Details LastModified Time 01/04/2023 01/04/2023 47-year-old female approximately 8 months status post left carpal tunnel and cubital tunnel release performed on 05/04/2022. patient has recovered well from left carpal tunnel and cubital tunnel release and her numbness and tingling has resolved. She is not having any pillar pain or pain around the cubital tunnel incision. She does have occasional wrist pain over the dorsal and ulnar aspect of the left wrist that occurs with gripping and twisting activities. she is not currently having any pain in her wrist today and I could not elicit any pain with physical exam testing. We discussed that she should continue to monitor this pain and use her wrist as tolerated avoiding activities that exacerbate it. She may use topical anti-inflammator ies as needed. She may follow-up as needed if her symptoms persist or worsen. [email or web address] Not available 01/04/2023 16:04:32 Plan of Treatment Reminders Order Date Submit Date Provider Last Modified By Organization Details Last Modified Time Details Appointments None record ed. Lab None record ed. Referral None record ed. Procedures None record ed. Surgeries None record ed. Imaging None record ed. Medication Orders None record ed. Patient TargetsNo targets recorded. Patient InstructionsNo instructions recorded. Reason for Referral None Reported. Results Created Date Observation Date Name Description Value Unit Range Abnormal Flag Note LastModifiedBy Organization Detail LastModifiedTime Result Notes None recorded. Problems Name Problem SNOMED Code Status Onset Date Resolution Date Notes Provider Name and Address Organization Details Recorded Time Menopausal syndrome 152093879 Active Not Available [facility] 3 05:58:52 Pain of bilateral hands 9686612669341 9109 Active 2021 Not Available [facility] 3 05:58:52 Carpal tunnel syndrome of right wrist 8672322204939 08 Active 2021 Not Available [facility] 3 05:58:52 Left lower quadrant pain 546449848 Active Not Available [facility] 3 05:58:52 Right lower quadrant pain 702911385 Active Not Available [facility] 3 05:58:52 Pain in pelvis 84105376 Active Not Available [facility] 3 05:58:52 Pain of left hand 6100495966625 03 Active 2021 Not Available [facility] 3 05:58:52 Pain of left wrist 3284702054116 02 Active 2021 Not Available [facility] 3 05:58:52 Pain in right hand 2130536933722 09 Active 2021 Not Available [facility] 3 05:58:53 Vulvitis 00786480 Active Not Available [facility] 3 05:58:53 Candidal vulvovagin itis 45849946 Active Not Available [facility] 3 05:58:53 Cyst of ovary 55647345 Active Not Available [facility] 3 05:58:53 Carpal tunnel syndrome of left wrist 3587661288772 02 Active 2022 BARBARA Ramos [place] [facility] [employer] 3 14:07:08 Ulnar nerve entrapment at elbow 181699981 Active 2022 BARBARA Ramos [place] - [employer] 3 14:07:29 Problem Notes None recorded. Medical Equipment None Reported. Allergies Allergen ID Allergen Name Allergen Category Reaction Reaction Severity Criticality Documentation Date Start Date Code Code System Note Provider Name and Address Organization Details Recorded Time 61040 Product containin g penicilli n and antibioti c (product) medicatio n rash moderate Not available 08/24/2022 08213 05 SNOMED Not Available [facility] 3 06:05:02 08528 latex environme nt,medica tion rash severe Not available 08/24/2022 30722 91 RxNorm Not Available [facility] 3 06:05:02 87336 ibuprofen medicatio n Not available Not available Not available 08/24/2022 5640 RxNorm Not Available [facility] 3 06:05:02 Medications Name Sig Start Date Stop Date Status Note LastModified by Organization Details LastModified Time carisoprodo l 350 mg tablet TK 1 T PO TID PRN P 11/02 completed Not Available Not Available Not Available penicillin V potassium 250 mg tablet active Not Available Not Available Not Available ziprasidone 80 mg capsule TK ONE C PO QD QPM PRN WITH FOOD 11/02 completed Not Available Not Available Not Available buspirone 5 mg tablet 11/02 completed Not Available Not Available Not Available prednisone 10 mg tablet PLEASE SEE ATTACHED FOR DETAILED DIRECTION S active Not Available Not Available No t Available venlafaxine ER 75 mg capsule,ext ended release 24 hr active Not Available Not Available Not Available doxycycline hyclate 100 mg capsule TAKE 1 CAPSULE BY MOUTH TWICE A DAY FOR 10 DAYS 11/02 completed Not Available Not Available Not Available trazodone 50 mg tablet TAKE 1 TABLET BY MOUTH EVERY DAY NEEDED FOR INSOMNIA active Not Available Not Available No t Available azithromyci n 250 mg tablet TAKE 2 TABLETS BY MOUTH TODAY, THEN TAKE 1 TABLET DAILY FOR 4 DAYS 11/02 completed Not Available Not Available Not Available Lidocaine Viscous 2 % mucosal solution active Not Available Not Available Not Available fluconazole 150 mg tablet TK 1 T PO QD FOR 1 DAY active Not Available Not Available No t Available hydrocodone 5 mg-acetamin ophen 325 mg tablet TAKE 1 TABLET BY MOUTH EVERY 6 HOURS NEEDED active Not Available Not Available No t Available meloxicam 15 mg tablet TK 1 T PO QD 11/02 completed Not Available Not Available Not Available phenazopyri dine 200 mg tablet TK 1 T PO TID FOR 2 DAYS active Not Available Not Available No t Available spironolact one 100 mg tablet TAKE 1 TABLET BY MOUTH EVERY DAY FOR ACNE active Not Available Not Available No t Available sertraline 100 mg tablet 11/02 completed Not Available Not Available Not Available quetiapine 200 mg tablet TAKE 1 TABLET BY MOUTH EVERY EVENING active Not Available Not Available No t Available atenolol 25 mg tablet TAKE 1 TABLET BY MOUTH EVERY DAY active Not Available Not Available No t Available venlafaxine ER 150 mg capsule,ext ended release 24 hr TK 1 C PO ONCE D active Not Available Not Available No t Available amoxicillin 250 mg-potassiu m clavulanate 125 mg tablet TK 1 T PO Q 8 H TAT active Not Available Not Available No t Available topiramate 25 mg tablet TK 1 T PO BID 11/02 completed Not Available Not Available Not Available ciprofloxac in 500 mg tablet TK 1 T PO BID FOR 7 DAYS active Not Available Not Available No t Available hydrocodone 10 mg-acetamin ophen 325 mg tablet TK 1 T PO Q 8-12 H PRN P MUST LAST 10 DAYS 11/02 completed Not Available Not Available Not Available tramadol 50 mg tablet TAKE ONE TABLET BY MOUTH EVERY 6 HOURS NEEDED active Not Available Not Available No t Available risperidone 3 mg tablet TK 1 T PO QPM active Not Available Not Available No t Available zolmitripta n 5 mg tablet TK 1 T PO AT ONSET OF RUTH MAY REPEAT IN 2 H IF RUTH RETURNS MAX 2 TS IN 24 H active Not Available Not Available No t Available lamotrigine 25 mg tablet TAKE 2 TABLETS BY MOUTH DAILY active Not Available Not Available No t Available Celebrex 200 mg capsule active Not Available Not Available Not Available risperidone 2 mg tablet TK 1 T PO QPM active Not Available Not Available No t Available oxycodone-a cetaminophe n 5 mg-325 mg tablet TAKE 1-2 TABLETS BY MOUTH EVERY 6 HOURS NEEDED FOR PAIN active Not Available Not Available No t Available Metrogel Vaginal 0.75 % (37.5 mg/5 gram) Insert 1 applicato r(s)ful every day by vaginal route at bedtime for 5 days. active Not Available Not Available No t Available amitriptyli ne 25 mg tablet TK 1 T PO QHS active Not Available Not Available No t Available lorazepam 0.5 mg tablet TK 1 T PO D NEEDED active Not Available Not Available No t Available Kenalog 10 mg/mL suspension for injection In office injection administe red by the provider active [facility]: 0003- 0494- 20 Not Available Not Available Not Available baclofen 10 mg tablet TAKE 1 TABLET BY MOUTH TWICE A DAY NEEDED FOR PAIN active Not Available Not Available No t Available benzonatate 100 mg capsule TAKE 1 CAPSULE BY MOUTH THREE TIMES A DAY NEEDED FOR COUGH active Not Available Not Available No t Available hydrocodone 7.5 mg-acetamin ophen 325 mg tablet TAKE 1 TABLET BY MOUTH EVERY 6 HOURS NEEDED active Not Available Not Available No t Available cephalexin 500 mg capsule active Not Available Not Available Not Available pantoprazol e 40 mg tablet,xena yed release TK 1 T PO QD active Not Available Not Available No t Available buspirone 10 mg tablet TAKE 1 TABLET BY MOUTH TWICE A DAY active Not Available Not Available No t Available omeprazole 20 mg capsule,del ayed release TAKE 1 CAPSULE BY MOUTH TWICE A DAY active Not Available Not Available No t Available hydrocodone 5 mg-acetamin ophen 500 mg tablet active Not Available Not Available No t Available lisinopril 5 mg tablet TAKE 1 TABLET BY MOUTH EVERY DAY active Not Available Not Available No t Available ziprasidone 40 mg capsule TK 1 C PO QPM FOR 2 WEEKS THEN INCREASE TO 2 CS QPM active Not Available Not Available No t Available lorazepam 1 mg tablet TAKE 1 TABLET BY MOUTH THREE TIMES A DAY NEEDED FOR ANXIETY active Not Available Not Available No t Available Cheratussin AC 10 mg-100 mg/5 mL oral liquid active Not Available Not Available Not Available oxycodone-a cetaminophe n 7.5 mg-325 mg tablet active Not Available Not Available Not Available albuterol sulfate HFA 90 mcg/actuati on aerosol inhaler INHALE 1 PUFF BY MOUTH EVERY 4 HOURS NEEDED FOR WHEEZE FOR SHORTNESS OF BREATH active Not Available Not Available No t Available hydrocodone 10 mg-acetamin ophen 650 mg tablet TK 1 T PO Q 8-12 H PRN active Not Available Not Available No t Available oxybutynin chloride 5 mg tablet TAKE 1/2 TABLET BY MOUTH TWICE DAILY active Not Available Not Available No t Available topiramate 100 mg tablet 11/02 completed Not Available Not Available Not Available fluticasone propionate 50 mcg/actuati on nasal spray,suspe nsion INSTILL 1 SPRAY INTO THE NOSTRILS TWICE DAILY 11/02 completed Not Available Not Available Not Available sertraline 50 mg tablet 11/02 completed Not Available Not Available Not Available risperidone 1 mg tablet active Not Available Not Available Not Available dicyclomine 10 mg capsule TAKE 1 CAPSULE BY MOUTH 3 TIMES A DAY NEEDED FOR ABDOMINAL DISCOMFOR T active Not Available Not Available No t Available risperidone 0.5 mg tablet active Not Available Not Available Not Available bupropion HCl SR 200 mg tablet,12 hr sustained-r elease active Not Available Not Available Not Available escitalopra m 10 mg tablet TAKE 1 TABLET BY MOUTH ONCE DAILY IN THE EVENING active Not Available Not Available No t Available escitalopra m 20 mg tablet TK 1 T PO QD 11/02 completed Not Available Not Available Not Available bupropion HCl XL 300 mg 24 hr tablet, extended release TAKE 1 TABLET BY MOUTH EVERY DAY active Not Available Not Available No t Available bupropion HCl XL 150 mg 24 hr tablet, extended release TAKE 1 TABLET BY MOUTH EVERY DAY active Not Available Not Available No t Available Zomig 5 mg nasal spray USE 1 SPRAY IN NOSTRIL AT ONSET OF HEADACHE. MAY BE REPEATED AFTER 2 HOURS. DO NOT USE MORE THAN 2 SPRAYS D. 2-3 SPRAYS PER WEEK ONLY. 11/02 completed Not Available Not Available Not Available topiramate 50 mg tablet TK 1 T PO BID 11/02 completed Not Available Not Available Not Available nitrofurant oin monohydrate /macrocryst als 100 mg capsule TAKE 1 CAPSULE BY MOUTH EVERY 12 HOURS WITH A MEAL/FOOD X7 DAYS active Not Available Not Available No t Available lidocaine (PF) 10 mg/mL (1 %) injection solution In office injection administe red by the provider active [facility]: [phone] 4276- 17 Not Available Not Available Not Available Symbicort 80 mcg-4.5 mcg/actuati on HFA aerosol inhaler INHALE 2 PUFFS BY MOUTH ONCE EVERY 12 HOURS active Not Available Not Available No t Available diclofenac 1 % topical gel APPLY 4 GRAMS TO SINGLE KNEE, ANKLE FOOT (INCLUDES SOLE,TOES ,TOP OF FOOT) 4 TIMES A DAY active Not Available Not Available No t Available Linzess 145 mcg capsule TAKE 1 CAPSULE BY MOUTH EVERY DAY active Not Available Not Available No t Available Linzess 290 mcg capsule TAKE 1 CAPSULE BY MOUTH EVERY DAY active Not Available Not Available No t Available Lopreeza 1 mg-0.5 mg tablet TAKE 1 TABLET BY MOUTH EVERY DAY 11/02 completed Not Available Not Available Not Available Vitals Date Recorded Body mass index (BMI) Body height Body weight Provider Name and Address Organization Details Last Updated DateTime 05/17/2022 31.7 kg/m2 154.94 cm 25075.52 g Not Available [facility] 08/24/2022 05:57:37 Date Recorded Body mass index (BMI) Body height Body weight Provider Name and Address Organization Details Last Updated DateTime 06/28/2022 32.7 kg/m2 154.94 cm 69623.48 g Not Available [facility] 08/24/2022 05:57:37 Date Recorded Body height Provider Name an d Address Organization Details Last Updated DateTime 05/03/2022 154.94 cm Not Available [facility] 05:57:36 Date Recorded Body height Provider Name an d Address Organization Details Last Updated DateTime 09/21/2022 154.94 cm Marquez Baig Karen [employer] 09/21/2022 14:06:34 Date Recorded Body height Body mass index (BMI) Body weight Provider Name and Address Organization Details Last Updated DateTime 01/04/2023 157.48 cm 28.9 kg/m2 30539.59 g Terrie Pereyra CNA [facility] 01/04/2023 15:10:22 Social History Question Answer Notes LastModified by ANPIizat ion Details LastModified Time Tobacco Smoking Status Unknown If Ever Smoked Not Available [facility] 08/24/2022 05:53:20 What Is Your Level Of Alcohol Consumption? Occasional [id number] Information not available 08/24/2022 What Was The Date Of Your Most Recent Tobacco Screening? 11/02/2021 [id number] Information not available 08/24/2022 Sex: Unknown Functional Status None recorded. Mental Status None recorded. Family History Relationship Description Onset Age of this Age Resolved Age Notes LastModified by Organization Details LastModified Time Maternal Grandmother Hypertensive disorder [id number] Not available 08/24/2022 05:53:27 Maternal Grandmother Deep venous thrombosis [id number] Not available 08/24/2022 05:53:27 Medical History Condition Response ARTHRITIS Y ULCERS Y SKIN PROBLEMS Y OSTEOPOROSIS Y Gynecological HistoryNo gynecological history recorded. Obstetrics History GPAL:G 0 P 0 0 0 0 Past Encounters Encounter ID Performer Location Encounter Start Date Encounter Closed Date Diagnosis/Indication Diagnosis SNOMED-CT Code Diagnosis ICD10 Code Diagnosis Note [id number] [facility] [address] [place], [place] [address] 11/02/2021 00:00:00 11/02/2021 15:24:14 [id number] [facility] [address] [place] [address] 12/14/2021 00:00:00 12/14/2021 17:04:02 [id number] [facility] [address] [place] [address] 01/18/2022 00:00:00 01/18/2022 11:35:05 [id number] [facility] [address] [place] [address] 03/01/2022 00:00:00 03/01/2022 12:32:08 [id number] [facility] [address] [place] [address] 05/03/2022 00:00:00 05/03/2022 11:57:29 [id number] [facility] [address] [place] [address] 05/17/2022 00:00:00 05/17/2022 12:20:08 [id number] [facility] [address] [place] [address] 06/28/2022 00:00:00 06/28/2022 11:35:25 [id number] Jose Manuel Luz MD [facility] [address] [place] [address] 09/21/2022 14:04:19 09/21/2022 14:19:18 Pain of left hand 6060815328 38954 M79.642 Carpal richmond chelsea syndrome of left wrist 3151379822 99638 G56.02 patient will continue few times a week taking Vaseline and massaging it down into the scar and continue with a stress and load program of her palm. I will see her back in 3 months make sure we do not need to put her on a little steroid pack or do any injection for the soreness around the wrist should resolve by then as the nerve is still actually healing at 1 mm a day or an inch a month it takes about 6 months for the carpal in about a year to year and a half for the cubital tunnel to heal completely Ulnar nerv e entrapment at elbow 535002030 G56.21 [id number] RENETTA March [facility] [address] [place] [address] 01/04/2023 15:07:28 01/04/2023 16:30:51 Carpal tunnel syndrome of left wrist 8140135421 34428 G56.02 Ulnar nerv e entrapment at elbow 800885858 G56.21 Pain of left hand 986325 0672 15587 M79.642 Health Concerns Section Related Observation LastModified by Organization Detai ls LastModified Time None Recorded Concern Status LastModified by Organization Details LastModified Time None Recorded Advance Directives Directive None Recorded Payers Encounter Date Sequence Insurance Name Policy Number Policy Puente Covered Member ID Puente Member ID Guarantor Name 09/21/2022 1 [facility] [id number] Elizabeth S Spiroff [id number] Elizabeth S Spiroff 01/04/2023 1 [facility] [employer] [id number] Elizabeth S Spiroff [id number] Elizabeth S Spiroff Notes Date Note Type Note Provider Name and Address Organization Details Recorded Time 09/21/2022 text/html patient returns today follow-up had carpal and cubital tunnel on the left back in April of 2022 he is now 4 months out making progress still has little bit of pillar pain if she lays on the arm at night occasional slid a little bit of numbing Jose Manuel Luz MD [address] [place] [address], [facility] [address], [place], [address], [place] [facility] [employer] 09/21/2022 14:20:48 01/04/2023 text/html 47-year-old fema le approximately 8 months status post left carpal tunnel and cubital tunnel release performed on 05/04/2022. She states that she is doing well and has no pain over the carpal tunnel or cubital tunnel. she denies having any numbness or tingling in the fingers of the left hand. She does report having occasional discomfort in the ulnar aspect of her wrist that occurs with gripping and twisting activities. she states her wrist does not currently hurt at this time. RENETTA March [address] [facility], [facility] [address], [place], [address], [facility] [place] [facility] 01/04/2023 16:04:43 OBGyn Episode No OBEpisode recorded.
--- OUTSIDE RECORDS SUMMARY | 2024-07-24 12:42 | XMS_ITS | Clinical Summary ---
Author Organization [facility] C Address [address] [place] [address] Care Team Providers Care Lamination Inspector Name Role Phone Sun Curry MD Primary Care Provider Allergies Active Allergy Reactions Criticality Noted Date [...] not set up a scheduled follow-up appointment. Surgical History Surgery Date Site/Laterality Comments TUBAL LIGATION 06/26/2005 - 06/25/2006 OVARIAN CYST REMOVAL 06/26/2007 - 06/25/2008 HYSTERECTOMY 06/26/2008 - 06/25/2009 TONSILLECTOMY 06/26/2004 - 06/25/2005 FOOT SURGERY 06/26/2001 - 06/25/2002 Medical History Medical History Date Comments Migraines Vertigo Sleeping difficulty History of bronchitis Arthritis History of stomach ulcers IBS (irritable bowel syndrome) Depression Bipolar 1 disorder (HCC) Anxiety Melanoma (HCC) 1993 Family History Medical History Relation Name Comments Blood Clot Mother Relation Name Status Comments Mother Social History Tobacco Use Types Packs/Day Years [...] on file Legal Sex Female 5:02 AM [employer] CLE[employer] Gender Identity Not on file Sexual Orientation Not on file Occupation Industry Job Start Date Job End Date Stay at home mom Not on file Not on file Not on file Obstetrics History Last Filed Vital Signs Vital Sign Reading [...] 04/09/2024 3:10 PM CDT Plan of Treatment Health Maintenance Due Date Last Done Comments Breast Cancer Screening-Mammogram 1977 Colon Cancer Screening-Colonoscopy 1977 Hepatitis C Screening 1977 DTaP/Tdap/Td Vaccine (1 - Tdap) 1988 Hepatitis B Screening 1995 Regular Well Visit/Exam 18-64 1995 Depression Screening 10/29/2020 10/30/2019, 10/30/2019 Covid-19 Vaccine (2023-2 5 season) 2024 02/08/2021, 2020 Influenza Vaccine (#1) 2024 HPV Vaccines Aged Out No longer eligi ble based on patient's age to complete this topic Pneumococcal vaccine <65 Aged Out No longer eligible based on patient's age to complete [place] [address] [employer] [place] [address] [employer] OPEN ACCESS [employer] OPEN ACCESS Care Teams Lamination Inspector Relationship Specialty Start Date End Date Sun Curry MD PCP - General Family Medicine 10/30/19
--- NOTE | 2024-07-24 14:30 | ED_ITS ---
HPI - Fever General Chief Complaint: Fever Stated Complaint: fever Focused HPI: 48-year-old female with history of hypertension, GERD presents to the emergency department for fever since Monday. Patient reports generalized fatigue and malaise. States her T-max at home has been 105. She took Tylenol this morning around 9:00 a.m. with some improvement please or fevers returning. Reports a cough that is unchanged from her baseline. Denies abdominal pain, vomiting, diarrhea. Endorses nausea. No known sick contacts. GENERAL: Well-appearing, well-nourished, and in no acute distress. HEAD: Normocephalic, atraumatic. CHEST: Clear to auscultation. ?No respiratory distress. HEART: Regular rate and rhythm.? NEURO: ?Alert and oriented x3. Patient screened in triage and initial orders placed.? ?Additional care and disposition to be based upon?diagnostic testing and treatment. Related Data Home Medications ?Medication ?Instructions ?Recorded ?Confirmed ?Last Taken ?Type spironolactone 100 mg tablet 100 mg PO DAILY 04/29/19 07/26/24 04/21/23 06:00 History lorazepam 1 mg tablet 1 mg PO BID 05/20/20 07/26/24 04/20/23 History buspirone 10 mg tablet 10 mg PO BID 05/31/21 07/26/24 04/21/23 06:00 History trazodone 50 mg tablet 50 mg PO QHS 05/31/21 07/26/24 04/20/23 History bupropion HCl 150 mg 24 hr tablet, 150 mg PO DAILY 04/11/23 07/26/24 04/21/23 06:00 History extended release bupropion HCl 300 mg 24 hr tablet, 300 mg PO DAILY 04/11/23 07/26/24 04/21/23 06:00 History extended release oxybutynin chloride 5 mg tablet 5 mg PO HS 04/11/23 07/26/24 04/20/23 History Allergies Allergy/AdvReac Type Severity Reaction Status Date / Time tree nut Allergy Severe mouth Verified 07/26/24 13:31 swelling latex Allergy Intermediate RASH Verified 07/26/24 13:31 Penicillins Allergy Unknown Itching Verified 07/26/24 13:31 [facility] Past Medical History Medical History Colon cancer screening Essential hypertension Costochondritis, acute Cough (11/14/21) Paresthesia of hand, bilateral Obesity (BMI 30-39.9) GERD (gastroesophageal reflux disease) Bipolar disorder Schizophrenia IBS (irritable bowel syndrome) Liver lesion Abdominal pain Back pain Anxiety Mood disorder Surgical History Surgical History History of carpal tunnel repair Family History Family History Other Asthma Family history of coronary artery disease Hypertension Social History Social History Smoking status: Never smoker Second hand tobacco smoke exposure: No Alcohol intake: current Drinks per week: 1 Substance use: never Substance use type: does not use Lack of Transportation: No Lack of Food: Never True Current Housing: I Have Housing Concerned About Future Housing: No Difficulty Paying Gas/Electric Bills: No Difficulty Paying for Meds: No Currently Unemployed: No Education: Trade/Vocational Certificate Difficulty w/ Childcare or Family Care: No Living arrangements: with family Gender identity (if verbalized by the patient): Female Sexual Orientation (if Verbalized by the Patient): Straight or Heterosexual Spiritual care concerns: No Agree to blood products: Yes Course Vital Signs Vital signs: Vital Signs Temperature 99.0 F 07/24/24 11:32 Pulse Rate 62 07/24/24 11:32 Respiratory Rate 18 07/24/24 11:32 Blood Pressure 105/67 07/24/24 11:32 Pulse Oximetry 98 07/24/24 11:32 Temperature 99.0 F 07/24/24 11:32 Pulse Rate 62 07/24/24 11:32 Respiratory Rate 18 07/24/24 11:32 Blood Pressure 105/67 07/24/24 11:32 Pulse Oximetry 98 07/24/24 11:32 MDM - Fever Lab Data Labs: Lab Results 07/24/24 Range/Units 14:30 Influenza A (RT-PCR) Negative (Negative) Influenza B (RT-PCR) Negative (Negative) RSV (RT-PCR) Negative (Negative) SARS-CoV-2 RNA (RT-PCR) Negative (Negative) Discharge Plan Discharge Clinical Impression: Fever Qualifiers: Fever type: unspecified Qualified Code(s): R50.9 - Fever, unspecified Patient Disposition: Elopement After Seen by Prov Condition: Stable Patient Language: Maldivian Prescriptions: No Action trazodone 50 mg tablet 50 mg PO QHS buspirone 10 mg tablet 10 mg PO BID (DME) spirometers and accessories Device See Rx Instructions .Route Qty: 1 0RF Rx Instructions: As directed levofloxacin 500 mg tablet 500 mg PO DAILY 10 Days Qty: 10 0RF benzonatate 200 mg capsule 200 mg PO TID PRN (Reason: cough) 10 Days Qty: 30 0RF celecoxib [Celebrex] 200 mg capsule 200 mg PO BID 15 Days Qty: 30 0RF lorazepam 1 mg tablet 1 mg PO BID oxybutynin chloride 5 mg tablet 5 mg PO HS bupropion HCl 300 mg tablet extended release 24 hr 300 mg PO DAILY bupropion HCl 150 mg tablet extended release 24 hr 150 mg PO DAILY spironolactone 100 mg tablet 100 mg PO DAILY albuterol sulfate 90 mcg/actuation HFA aerosol inhaler See Rx Instructions .ROUTE .COMPLEX Qty: 8.5 2RF Dose Instruction: INHALE 1 PUFF BY MOUTH EVERY 4 HOURS NEEDED FOR WHEEZE FOR SHORTNESS OF BREATH Rx Instructions: INHALE 1 PUFF BY MOUTH EVERY 4 HOURS NEEDED FOR WHEEZE FOR SHORTNESS OF BREATH omeprazole 20 mg capsule,delayed release(DR/EC) See Rx Instructions .ROUTE .COMPLEX Qty: 180 3RF Dose Instruction: TAKE 1 CAPSULE BY MOUTH TWICE A DAY Rx Instructions: TAKE 1 CAPSULE BY MOUTH TWICE A DAY lisinopril 5 mg tablet See Rx Instructions .ROUTE .COMPLEX Qty: 90 1RF Dose Instruction: TAKE 1 TABLET BY MOUTH EVERY DAY Rx Instructions: TAKE 1 TABLET BY MOUTH EVERY DAY baclofen 10 mg tablet See Rx Instructions .ROUTE .COMPLEX Qty: 180 1RF Dose Instruction: TAKE 1 TABLET BY MOUTH TWICE A DAY NEEDED FOR PAIN Rx Instructions: TAKE 1 TABLET BY MOUTH TWICE A DAY NEEDED FOR PAIN dicyclomine 10 mg capsule 10 mg PO TID PRN (Reason: abdominal discomfort) Qty: 30 5RF Follow-up/Referrals: Sun Curry MD [Primary Care Provider] -
[2024-07-24] MEDS: IBUPROFEN 400 MG TABLET 800 MG PO (14:35)
--- NOTE | 2024-07-24 14:37 | PC.NURSE ---
pt PO ibuprofen fell onto ground. pulled new clean PO ibuprofen from Upplication. provided a total of 800mg
[2024-07-24 15:13] LABS: Influenza A QL RT-PCR Negative (Negative); Influenza B QL RT-PCR Negative (Negative); RSV RNA, RT-PCR Negative (Negative); SARS-CoV-2 RNA PCR Negative (Negative)
--- OUTSIDE RECORDS SUMMARY | 2024-07-24 16:51 | XMS_ITS | Clinical Summary ---
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
--- OUTSIDE RECORDS SUMMARY | 2024-07-24 16:51 | XMS_ITS | Continuity of Care Document ---
Author Organization [facility] Address [address] [place] [address] [address] [place] [address] Phone Care Team Providers Care Consulting Senior Practice Director Name Role Phone Hui OD, Alexander Unavailable Unavailable Advance Directives Directive Yes / No Effective Date File Name No Information Encounters Encounter Description Practice Location Reason(s) For Visit Diagnoses Date Provider Providers Copied on Encounter [facility], [id number] [place] [address] [address], [place], [place], [id number], [place] tel:[phone] [facility] No Information Sep-2 9-200 5 Hui OD Alexander. [address] , [address], [place], [address], [place]. tel:[phone] Family History Family Member Type Diagnosis Age At Onset No Information Payers Payer name Insurance type Covered constitution party ID Authoriza tion(s) [employer] Plan CI [id number] Social History Type Description Quantity Date [...]
--- OUTSIDE RECORDS SUMMARY | 2024-07-24 16:51 | XMS_ITS | Referral Summary ---
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
== END 2024-07-24 18:01 | disposition left against medical advice (07) ==
PROVIDERS: Emergency Provider Physician Assistant; PCP Family Medicine
DX: R50.9 Fever, unspecified (principal); Z20.822 Contact with and (suspected) exposure to COVID-19; I10 Essential (primary) hypertension; E66.9 Obesity, unspecified; K21.9 Gastro-esophageal reflux disease without esophagitis; K58.9 Irritable bowel syndrome, unspecified; F31.9 Bipolar disorder, unspecified; F20.9 Schizophrenia, unspecified; Z79.899 Other long term (current) drug therapy
CPT/HCPCS: 87637; 99199; 99283; A9270

== ENCOUNTER 2025-05-28 14:23 | Outpatient (CLI) | payer OTHER, SELFPAY ==
--- NOTE | ~2025-05-28 | MM_ITS ---
EXAMINATION: MM screening camila BI w shakira HISTORY: Screening. TECHNIQUE: Craniocaudal and mediolateral oblique 3-D tomosynthesis images were obtained and synthetic 2-D images were generated. CAD analysis was submitted and interpreted. COMPARISON: 2020 BREAST PARENCHYMAL COMPOSITION: Not Dense: There are scattered areas of fibroglandular FINDINGS: No suspicious masses are seen. There are no suspicious calcifications. No unexplained architectural distortion is seen. There are no skin or nipple abnormalities identified. There is no adenopathy seen on the images submitted. IMPRESSION: No mammographic evidence to suggest malignancy is seen. The patient may return to screening mammography as per ACR guidelines. BI-RADS 1 - Negative. Reviewed, dictated and finalized at location B. [facility]
== END 2025-05-28 14:24 | disposition home or self-care (01) ==
LOC: MICIMG 14:24
PROVIDERS: PCP Student in an Organized Health Care Education/Training Program; Visit Provider Nurse Practitioner
DX: Z12.31 Encounter for screening mammogram for malignant neoplasm of breast (principal)
CPT/HCPCS: 77063; 77067

== ENCOUNTER 2025-06-17 09:36 | Emergency (ER) | payer OTHER, SELFPAY ==
[2025-06-17 09:45] VITALS: BP 112/74; PULSE 116; RESP 18; TEMP 36.7; O2SAT 100
--- NOTE | 2025-06-17 09:54 | ED.GENADULT ---
HPI - General Adult General Chief complaint: Unspecified Stated complaint: Right Side Body Pain Time Seen by Provider: 06/17/25 09:38 Source: patient Mode of arrival: ambulatory Limitations: no limitations History of Present Illness HPI narrative: Elizabeth is a 49-year-old female patient presenting to the clinic today with complaints of right upper quadrant and right lower quadrant abdominal pain radiating into her back that started last night. States the pain is constant, sharp, and stabbing. Rates pain 9/10 currently. No history kidney stones. States she fell as though she had some burning with urination few days ago but that has resolved. Denies any blood in her urine. Last bowel movement was yesterday and was diarrhea. States she is also having some chills and feeling feverish. Denies any nausea or vomiting. Denies any chest pain or shortness of breath. History of full hysterectomy but still has her appendix and gallbladder. Other history includes IBS, duodenal ulcer, GERD, and liver lesion. Related Data Home Medications ?Medication ?Instructions ?Recorded ?Confirmed ?Last Taken ?Type spironolactone 100 mg tablet 100 mg PO DAILY 04/29/19 06/17/25 04/21/23 06:00 History lorazepam 1 mg tablet 1 mg PO BID 05/20/20 06/17/25 04/20/23 History buspirone 10 mg tablet 10 mg PO BID 05/31/21 06/17/25 04/21/23 06:00 History trazodone 50 mg tablet 50 mg PO QHS 05/31/21 06/17/25 04/20/23 History bupropion HCl 150 mg 24 hr tablet, 150 mg PO DAILY 04/11/23 06/17/25 04/21/23 06:00 History extended release bupropion HCl 300 mg 24 hr tablet, 300 mg PO DAILY 04/11/23 06/17/25 04/21/23 06:00 History extended release oxybutynin chloride 5 mg tablet 5 mg PO HS 04/11/23 06/17/25 04/20/23 History Allergies Allergy/AdvReac Type Severity Reaction Status Date / Time tree nut Allergy Severe mouth Verified 06/17/25 09:38 swelling latex Allergy Intermediate RASH Verified 06/17/25 09:38 levofloxacin Allergy Mild Rash Verified 06/17/25 09:38 Penicillins Allergy Unknown Itching Verified 06/17/25 09:38 Review of Systems Review of Systems: Pertinent positives per HPI. Patient denies any rash, headache, visual changes, dizziness, cough, runny nose, sore throat, shortness of breath, chest pain, palpitations, nausea, vomiting, constipation PMFSH Past Medical History Medical History Duodenal ulcer Colon cancer screening Essential hypertension Costochondritis, acute Cough (11/14/21) Paresthesia of hand, bilateral Obesity (BMI 30-39.9) GERD (gastroesophageal reflux disease) Bipolar disorder Schizophrenia IBS (irritable bowel syndrome) Liver lesion Abdominal pain Back pain Anxiety Mood disorder Surgical History Surgical History History of carpal tunnel repair Family History Family History Other Asthma Family history of coronary artery disease Hypertension Social History Social History Smoking status: Never smoker Second hand tobacco smoke exposure: No Alcohol intake: current Drinks per week: 1 Substance use: never Substance use type: does not use Lack of Transportation: No Lack of Food: Never True Current Housing: I Have Housing Concerned About Future Housing: No Difficulty Paying Gas/Electric Bills: No Difficulty Paying for Meds: No Currently Unemployed: No Education: Trade/Vocational Certificate Difficulty w/ Childcare or Family Care: No Living arrangements: with family Gender identity (if verbalized by the patient): Female Sexual Orientation (if Verbalized by the Patient): Straight or Heterosexual Spiritual care concerns: No Agree to blood products: Yes Comments At the time of my signature, I reviewed and agree with the nursing past medical, surgical, social, and family history. There is no relevant family history pertinent to the patient complaint. Exam Narrative: General: Well-developed, well-nourished, in no apparent distress. Head: Normocephalic, atraumatic. Cardio: Regular rate and rhythm, s1 and s2 normal, no murmur appreciated. Resp: Clear to auscultation bilaterally, no rhonchi, rales, wheezing or rubs. Abdomen: Soft, pliable, bowel sounds present in all quadrants, right upper and right lower quadrant abdomen tender to palpation, no organomegly, right-sided CVAT tenderness. Course Course Level of Care: Express Care Visit Vital Signs Vital signs: Vital Signs Temperature 36.7 C 06/17/25 09:45 Pulse Rate 116 H 06/17/25 09:45 Respiratory Rate 18 06/17/25 09:45 Blood Pressure 112/74 06/17/25 09:45 Pulse Oximetry 100 06/17/25 09:45 Oxygen Delivery Room Air 06/17/25 09:45 Temperature 36.7 C 06/17/25 09:45 Pulse Rate 116 H 06/17/25 09:45 Respiratory Rate 18 06/17/25 09:45 Blood Pressure 112/74 06/17/25 09:45 Pulse Oximetry 100 06/17/25 09:45 Oxygen Delivery Room Air 06/17/25 09:45 MDM MDM Narrative Medical decision making narrative: At the time of visit patient is resting comfortably on the exam table. Patient appears to be nontoxic. Complaints of right upper quadrant and right lower quadrant abdominal pain radiating into her back that started last night. States the pain is constant, sharp, and stabbing. Rates pain 9/10 currently. No history kidney stones. States she fell as though she had some burning with urination few days ago but that has resolved. Denies any blood in her urine. Last bowel movement was yesterday and was diarrhea. States she is also having some chills and feeling feverish. Denies any nausea or vomiting. Denies any chest pain or shortness of breath. History of full hysterectomy but still has her appendix and gallbladder. Other history includes IBS, duodenal ulcer, GERD, and liver lesion. On exam patient has soft, pliable, nondistended abdomen, tender to palpation over the right upper and right lower quadrant, no organomegaly, right CVAT tenderness. Order for urine dip and influenza testing Labs: Urinalysis dip and influenza testing. Influenza testing was negative. Urinalysis shows 1+ leukocytes, trace of protein, trace of blood. Plan: I suspect patient has UTI but cannot rule out cholecystitis/appendicitis. Shared decision-making was performed in the clinic today. Option 1 we will send in oral antibiotics to cover for UTI and have her take Tylenol/ibuprofen as needed for pain and if her symptoms worsen she is to go to the emergency room. Option 2-go to the emergency room for further evaluation to rule out other causes of right upper quadrant/right lower quadrant abdominal pain such as appendicitis or cholecystitis. Patient does have history of liver lesion. Patient would like to go home on antibiotics to treat for UTI and if her symptoms worsen she will go to the emergency room. Red flag symptoms were reviewed such as fever not controlled by Tylenol or Motrin, worsening of abdominal pain, lethargy, weakness, confusion, or any other concerning symptoms. Supportive measures were discussed with the patient and they voiced understanding discharge instructions and agrees to treatment plan. Return precautions reviewed Differential Diagnosis Differential Diagnosis: Differential diagnostic considerations for acute abdominal pain include surgical abdominal etiology, ischemic bowel, inflammatory bowel disease, gastritis, PUD, gastroenteritis, cardiac etiology, appendicitis, diverticulitis, bowel obstruction, kidney stone, pyelonephritis, abdominal aortic aneurysm, pancreatitis, constipation, endometriosis. Lab Data Labs: Lab Results 06/17/25 06/17/25 Range/Units 10:08 10:14 POC Urine Color Dark POC Urine Clarity Clear POC Urine pH 6.0 POC Ur Specif [place] 1.015 POC Urine Protein Trace (Negative) POC Ur Glucose (UA) Negative (Negative) POC Urine Ketones Negative (Negative) POC Urine Blood Trace (Negative) POC Urine Nitrite Negative (Negative) POC Urine Bilirubin Negative (Negative) POC Urine Urobilinogen 0.2 POC U Leukocyte Esteras 1+ (Negative) POC Influenza A Ag Negative (Negative) POC Influenza B Ag Negative (Negative) Discharge Plan Discharge Clinical Impression: Right sided abdominal pain UTI (urinary tract infection) Qualifiers: Urinary tract infection type: acute cystitis Hematuria presence: with hematuria Qualified Code(s): N30.01 - Acute cystitis with hematuria Patient Disposition: Home Condition: Stable Instructions: Antibiotic Form, Urinary Tract Infection in Women (ED), Abdominal Pain (ED) Additional Instructions: Increase fluids and stay well hydrated Wipe front to back. May use wet wipes. Avoid tub baths If sexually active- pee before and after intercourse. Wear cotton panties Avoid tight clothing up against the genitals Follow up with your PCP in 1 week if symptoms persist. Go to the emergency room if symptoms worsen-fever not controlled by Tylenol Motrin, increase in abdominal pain, nausea, vomiting, confusion, weakness, or lethargy Patient Language: Burmese Prescriptions: New cephalexin 500 mg capsule 500 mg PO Q12H 7 Days Qty: 14 0RF No Action trazodone 50 mg tablet 50 mg PO QHS buspirone 10 mg tablet 10 mg PO BID (DME) spirometers and accessories Device See Rx Instructions .Route Qty: 1 0RF Rx Instructions: As directed lorazepam 1 mg tablet 1 mg PO BID dicyclomine 10 mg capsule 10 mg PO TID PRN (Reason: abdominal discomfort) Qty: 90 11RF omeprazole 20 mg capsule,delayed release(DR/EC) See Rx Instructions .ROUTE .COMPLEX Qty: 180 3RF Dose Instruction: TAKE 1 CAPSULE BY MOUTH TWICE A DAY Rx Instructions: TAKE 1 CAPSULE BY MOUTH TWICE A DAY oxybutynin chloride 5 mg tablet 5 mg PO HS bupropion HCl 300 mg tablet extended release 24 hr 300 mg PO DAILY bupropion HCl 150 mg tablet extended release 24 hr 150 mg PO DAILY spironolactone 100 mg tablet 100 mg PO DAILY albuterol sulfate 90 mcg/actuation HFA aerosol inhaler See Rx Instructions .ROUTE .COMPLEX Qty: 8.5 2RF Dose Instruction: INHALE 1 PUFF BY MOUTH EVERY 4 HOURS NEEDED FOR WHEEZE FOR SHORTNESS OF BREATH Rx Instructions: INHALE 1 PUFF BY MOUTH EVERY 4 HOURS NEEDED FOR WHEEZE FOR SHORTNESS OF BREATH lisinopril 5 mg tablet See Rx Instructions .ROUTE .COMPLEX Qty: 90 3RF Dose Instruction: TAKE 1 TABLET BY MOUTH EVERY DAY Rx Instructions: TAKE 1 TABLET BY MOUTH EVERY DAY baclofen 10 mg tablet See Rx Instructions .ROUTE .COMPLEX Qty: 180 1RF Dose Instruction: TAKE 1 TABLET BY MOUTH TWICE A DAY NEEDED FOR PAIN Rx Instructions: TAKE 1 TABLET BY MOUTH TWICE A DAY NEEDED FOR PAIN Linzess 145 mcg capsule 145 mcg PO DAILY Qty: 30 1RF Follow-up/Referrals: Precious Marinelli PA-C [Primary Care Provider, Family Practice] Time of Disposition: 10:26 Quality NIHSS Nursing Documentation ED NIHSS nursing documentation: reviewed/agree
[2025-06-17 10:10] LABS: EDUAAPPEAR Clear; EDUABILI Negative (Negative); EDUABLOOD Trace (Negative); EDUACOLOR1 Dark; EDUAGLUCOSE Negative (Negative); EDUAKETONE Negative (Negative); EDUALEUKO 1+ (Negative); EDUANITRATE Negative (Negative); EDUAPH 6.0; EDUAPROTEIN Trace (Negative); EDUASPGRAVITY 1.015; EDUAUROBILI 0.2
[2025-06-17 10:15] LABS: EDINFLUASCREEN Negative (Negative); EDINFLUBSCREEN Negative (Negative)
== END 2025-06-17 10:33 | disposition home or self-care (01) ==
PROVIDERS: Emergency Provider Nurse Practitioner Family; PCP Student in an Organized Health Care Education/Training Program
DX: R10.11 Right upper quadrant pain (principal); R10.31 Right lower quadrant pain; N30.01 Acute cystitis with hematuria; I10 Essential (primary) hypertension; K21.9 Gastro-esophageal reflux disease without esophagitis; E66.9 Obesity, unspecified; Z68.28 Body mass index [BMI] 28.0-28.9, adult; F41.9 Anxiety disorder, unspecified
CPT/HCPCS: 81003; 87077; 87086; 87186; 87804; 99213; G0463

== ENCOUNTER 2025-06-17 10:46 | Observation (INO) | payer OTHER, SELFPAY ==
[2025-06-17] VITALS (15 sets, daily range): BP systolic 95–125; BP diastolic 50–85; PULSE 79–122; RESP 16–19; TEMP 36.9–39.4; O2SAT 91–100; BMI 29.8
--- NOTE | ~2025-06-17 | CT_ITS ---
EXAMINATION: CT abdomen pelvis w con DATE: 06/17/2025 13:20 INDICATION: Right upper quadrant pain TECHNIQUE: Computed tomography (CT) of the abdomen and pelvis was performed with intravenous contrast. The dose-length product was 441.90 mGy-cm. Automated exposure control and iterative reconstruction technique were employed. COMPARISON: CT dated 02/13/2023. FINDINGS: Lung bases unremarkable. Heart size normal. Fatty infiltration of the liver. Mild gallbladder distention. The spleen, pancreas, adrenal glands and kidneys are unremarkable. There is urothelial enhancement proximal aspect of the right ureter, suspicious for ascending urinary tract infection. No obstructing stone or mass. Nonobstructive bowel gas pattern. No abnormal pelvic masses or fluid collections. No significant vascular abnormality. No lymphadenopathy. There are surgical clips in the pelvis consistent with previous hysterectomy. Moderate disc narrowing at L5-S1. There is facet hypertrophy at this level. No acute fracture or traumatic malalignment. IMPRESSION: 1. Mild proximal right urothelial enhancement, suspicious for ascending urinary tract infection. Clinically correlate. Reviewed, dictated and finalized at location O. ENE COORDINATOR
--- OUTSIDE RECORDS SUMMARY | 2025-06-17 11:18 | XMS_ITS | Clinical Summary ---
Author Organization 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 Gender Identity Not on file Sexual Orientation Not on file Plan of Treatment Health Maintenance Due Date Last Done Comments DTAP/TDAP/TD VACCINES (1 - Tdap) 1996 HEPATITIS B VACCINES (1 of 3 - 19+ 3-dose series) 09/1996 HPV/Cotest (21-29) 1998 CERVICAL CANCER SCREENING 2007 HPV/Cotest (30-65) 2007 PAP SMEAR 2007 BREAST CANCER SCREENING 2017 COLORECTAL SCREENING 2022 Colorectal Cancer Screening 2022 FIT-DNA Q 3 years 2022 FIT/FOBT Q 1 year 2022 Flex Sig/CT Colonography Q 5 years 2022 INFLUENZA VACCINE (#1) 2025 Insurance BCBS BLUE ACCESS/TRUE BLUE PPO Care Teams Keycase Assembler Relationship Specialty Start Date End Date Sun uCrry MD [address] [place] [address] PCP - General Family Practice 03/07/11
--- OUTSIDE RECORDS SUMMARY | 2025-06-17 11:18 | XMS_ITS | Clinical Summary ---
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 on file Not on file Not on file Last Filed Vital Signs Vital Sign Reading Time Taken Comments Blood Pressure 111/74 04/09/2024 3:10 PM CDT Pulse 88 04/09/2024 3:10 PM CDT Temperature 36.7 C (98 F) 04/09/2024 3:10 PM CDT Respiratory Rate 18 04/09/2024 3:10 PM CDT Oxygen Saturation 98% 04/09/2024 3:10 PM CDT Inhaled Oxygen Concentration - - Weight 73.6 kg (162 lb 4.8 oz) 04/09/2024 3:10 P M CDT Height 159.4 cm (5' 2.76) 04/09/2024 3:10 PM CD T Body Mass Index 28.97 04/09/2024 3:10 PM CDT Plan of Treatment Health Maintenance Due Date Last Done Comments Breast Cancer Screening-Mammogram 1977 Colon Cancer Screening-Colonoscopy 1977 Hepatitis C Screening 1977 DTaP/Tdap/Td Vaccine (1 - Tdap) 1988 Hepatitis B Screening 1995 Regular Well Visit/Exam 18-64 1995 Depression Screening 10/29/2020 10/30/2019, 10/30/2019 Covid-19 Vaccine (2024-2 6 season) 2025 02/08/2021, 2020 Influenza Vaccine (#1) 2025 Pneumococcal vaccine <65 Aged Out No longer eligible based on patient's age to complete this topic Insurance [employer] OPEN ACCESS CIG[employer] OPEN ACCESS [employer] OPEN ACCESS Care Teams Director Of Special Services Relationship Specialty Start Date End Date Sun Curry MD PCP - General Family Medicine 10/30/19
--- OUTSIDE RECORDS SUMMARY | 2025-06-17 11:18 | XMS_ITS | Data Portability ---
Author Organization [facility] [employer], Main Office Address [address] [place] [address] Care Team Providers Care Glass Cutting Machine Operator Name Role Phone LANCE JONES Primary Care Provider [phone] LANCE JONES Referring Provider Assessment Encounter Date [...] Address Organization Details Recorded Time Menopausal syndrome 324341324 Active Not Available [facility] 3 05:58:52 Left lower quadrant pain 868630843 Active Not Available [facility] 3 05:58:52 Right lower quadrant pain 273906114 Active Not Available [facility] 3 05:58:52 Pain in pelvis 38474071 Active Not Available [facility] 3 05:58:52 Vulvitis 83571816 Active Not Available [facility] 3 05:58:53 Candidal vulvovagin itis 32315180 Active Not Available [facility] 3 05:58:53 Cyst of ovary 04332642 Active Not Available [facility] 3 05:58:53 Pain of bilateral hands 9296578916769 9109 Active 2021 Not Available [facility] 3 05:58:52 Carpal tunnel syndrome of right wrist 5977586286157 08 Active 2021 Not Available [facility] 3 05:58:52 Pain of right hand 1748223844667 09 Active 2021 Not Available [facility] 3 05:58:53 Pain of left hand 5934090617133 03 Active 2021 Not Available [facility] 3 05:58:52 Pain of left wrist 7857404084748 02 Active 2021 Not Available [facility] 3 05:58:52 Carpal tunnel syndrome of left wrist 6082378797928 02 Active 2022 BARBARA Ramos, TIAN Br[employer] 3 14:07:08 Ulnar nerve entrapment at elbow 891097029 Active 2022 BARBARA Ramos [place] - [employer] 3 14:07:29 Problem Notes None recorded. Medical Equipment None Reported. Allergies Allergen ID Allergen Name Allergen Category Reaction Reaction Severity Criticality Documentation Date Start Date Code Code System Note Provider Name and Address Organization Details Recorded Time 38688 Product containin g penicilli n (product) medicatio n rash moderate Not available 08/24/2022 08671 8001 SNOMED Not Available [facility] 3 06:05:02 31788 latex environme nt,medica tion rash severe Not available 08/24/2022 96993 91 RxNorm Not Available [facility] 3 06:05:02 97884 ibuprofen medicatio n Not available Not available Not available 08/24/2022 5640 RxNorm Not Available [facility] 3 06:05:02 Medications Name Sig Start Date [...] injection administe red by the provider active [facility]: 0003- 0494- 20 Not Available Not Available [...] injection administe red by the provider active [facility]: 0409- 4276- 17 Not Available Not Available [...] Updated DateTime 06/28/2022 32.7 kg/m2 154.94 cm 81293.48 g Not Available [facility] 08/24/2022 05:57:37 Date Recorded Body height Provider Name an d Address Organization Details Last Updated DateTime 09/21/2022 154.94 cm Catrachoindio Jovanni [facility] [employer] [facility] 09/21/2022 14:06:34 Date Recorded Body height Body mass index (BMI) Body weight Provider Name and Address Organization Details Last Updated DateTime 01/04/2023 157.48 cm 28.9 kg/m2 16418.59 g [facility] [employer] [facility] [employer] [facility] 01/04/2023 15:10:22 Date Recorded Body height Provider Name an d Address Organization Details Last Updated DateTime 05/03/2022 154.94 cm Not Available [facility] 05:57:36 Date Recorded Body mass index (BMI) Body height Pain severity - 0-10 verbal numeric rating [Score] - Reported Body weight Provider Name and Address Organization Details Last Updated DateTime 05/17/2022 31.7 kg/m2 154.94 cm 8 66437.52 g Not Available [facility] 08/24/2022 05:57:37 Social History Question Answer Notes LastModified by Sisasa Details LastModified Time Tobacco Smoking Status Unknown If Ever Smoked Not Available [facility] 08/24/2022 05:53:20 What Was The Date Of Your Most Recent Tobacco Screening? 11/02/2021 [id number] Information not available 08/24/2022 Sex: Unknown Functional Status Question Answer Note LastModified by Sisasa Details LastModified Time What is your level of alcohol consumption? Occasional [id number] Information not available 08/24/2022 Mental Status None recorded. Family History Relationship Description Onset Age of this Age Resolved Age Notes LastModified by Organization Details LastModified Time Maternal Grandmother Hypertensive disorder [id number] Not available 08/24/2022 05:53:27 Maternal Grandmother Deep venous thrombosis [id number] Not available 08/24/2022 05:53:27 Medical History Condition Response SKIN PROBLEMS Y ARTHRITIS Y ULCERS Y OSTEOPOROSIS Y Gynecological HistoryNo gynecological history recorded. Obstetrics History GPAL:G 0 P 0 0 0 0 Past Encounters Encounter ID Performer Location Encounter Start Date Encounter Closed Date Diagnosis/Indication Diagnosis SNOMED-CT Code Diagnosis ICD10 Code Diagnosis IMO Codes Diagnosis Note [id number] Jose Manuel Luz MD [facility] [place] [address] [place] [address] 11/02/2021 00:00:00 11/02/2021 15:24:14 [id number] Jose Manuel Luz MD [facility] [place] [address] [place] [address] 12/14/2021 00:00:00 12/14/2021 17:04:02 [id number] Jose Manuel Luz MD [facility] [place] [address] [place] [address] 01/18/2022 00:00:00 01/18/2022 11:35:05 [id number] Jose Manuel Luz MD [facility] [place] [address] [place] [address] 03/01/2022 00:00:00 03/01/2022 12:32:08 [id number] Jose Manuel Luz MD [facility] [place] [address] [place] [address] 05/03/2022 00:00:00 05/03/2022 11:57:29 [id number] Jose Manuel Luz MD [facility] [place] [address] [place] [address] 05/17/2022 00:00:00 05/17/2022 12:20:08 [id number] Jose Manuel Luz MD [facility] [place] [address] [place] [address] 06/28/2022 00:00:00 06/28/2022 11:35:25 [id number] Jose Manuel Luz MD [facility] [place] [address] [place] [address] 09/21/2022 14:04:19 09/21/2022 14:19:18 Pain of left hand 3380309809 54761 M79.642 Carpal richmond chelsea syndrome of left wrist 4335235590 83259 G56.02 patient will continue few times a [...] completely Ulnar nerv e entrapment at elbow 990940047 G56.21 [id number] Jose Manuel Luz MD [facility] [place] [address] [place] [address] 01/04/2023 15:07:28 01/04/2023 16:30:51 Carpal tunnel syndrome of left wrist 4426982064 01738 G56.02 Ulnar nerv e entrapment at elbow 188194124 G56.21 Pain of left hand 404331 4835 48818 M79.642 Health Concerns Section Related Observation LastModified by Organization Detai ls LastModified Time None Recorded Concern Status LastModified by Organization Details LastModified Time None Recorded Advance Directives Directive None Recorded Payers Insurance Date Sequence Insurance Name Policy Number Policy Puente Covered Member ID Puente Member ID Guarantor Name 01/09/2023 1 [employer] [id number] Elizabeth Mustafa [id number] Elizabeth Mustafa Notes Date Note Type Note Provider Name [...] bit of numbing Jose Manuel Luz MD [address] [facility], [facility] [address], [place], [address], [place] - [facility] [employer] 09/21/2022 14:20:48 01/04/2023 text/html 47-year-old female approximately 8 months status post [...] hurt at this time. RENETTA March [address] [facility] [address], [place], [address], [facility] 01/04/2023 16:04:43 OBGyn Episode No OBEpisode recorded.
--- OUTSIDE RECORDS SUMMARY | 2025-06-17 11:18 | XMS_ITS | Patient Health Record ---
Author Organization [facility] Address [address] [facility] [address] [facility] [place] [address] Phone [phone] Care Team Providers Care Neurosurgical Physician Assistant Name Role Phone MD JONES LAURA Primary Care Provider UnavailSkyler Emmanuel MD Unavailable YARIEL VALENCIA JASON Unavailable Unavailable Allergies Allergen (clinical drug ingredient) Drug/Non Drug Allergy documented on EMR Reaction Allergy Type Onset Date Status Peanut-containing Drug Products itch and sores Drug Allergy Active Substance with penicillin structure and antibacterial mechanism of action (substance) Penicillins rash Drug Allergy Active Reason For Referral No Information Medications Medication SIG (Take, Route, Frequency, Duration) Notes Start Date End Date Diagnosis (ICD Code) Status busPIRone HCl 10 MG Tablet 1 tablet Orally Twice a day Active Omeprazole 20 MG Capsule Delayed Release TAKE 1 CAPSULE BY MOUTH TWICE A DAY Oral; Duration: 90 Active oxyBUTYnin Chloride 5 MG Tablet TAKE 1 TABLET BY MOUTH TWICE A DAY Oral; Duration: 90 Active Tylenol 325 MG Tablet 1 tablet as needed Orally every 4 hrs Active buPROPion HCl ER (XL) 150 MG Tablet Extended Release 24 Hour TAKE 1 TABLET BY MOUTH EVERY DAY Oral; Duration: 90 Active Wellbutrin XL 300 MG Tablet Extended Release 24 Hour 1 tablet in the morning Orally Once a day; Duration: 30 day(s) Active LORazepam 1 MG Tablet (Schedule IV Drug) TAKE 1 TABLET BY MOUTH THREE TIMES DAILY NEEDED FOR ANXIETY Oral; Duration: 30 Active Baclofen 10 MG Tablet TAKE 1 TABLET BY MOUTH TWICE A DAY NEEDED FOR PAIN Oral; Duration: 30 Active Voltaren 1 % Gel apply 4 grams to painful joint(s) Transdermal 4x/day as needed for pain; Duration: 30 days Unspecified osteoarthritis, unspecified site (ICD_10 - M19.90) Active lamoTRIgine 25 MG Tablet TAKE 2 TABLETS EVERY DAY Oral; Duration: 90 Active Spironolactone 100 MG Tablet TAKE 1 TABLET BY MOUTH EVERY DAY FOR ACNE Oral; Duration: 90 Active Social History Tobacco Use: Social History Observation Description Date Details (start date - stop date) Never Smoker NA - NA Sex Observation Social History Observation Description Sex Observation Female Social History Drugs/Alcohol: Social Info Question Answer Notes Alcohol Screen (Audit-C) Did you have a drink containing alcohol in the past year? Yes How often did you have a drink containing alcohol in the past year? Monthly or less (1 point) How many drinks did you have on a typical day when you were drinking in the past year? 1 or 2 drinks (0 point) How often did you have 6 or more drinks on one occasion in the past year? Never (0 point) Points 1 Interpretation Negative Tobacco Use: Social Info Question Answer Notes Tobacco Use/Smoking Are you a nonsmoker Section Notes: The patient is a stay at [facility]. She has three children. She denies tobacco, alcohol, or illicit drug abuse. Problems Problem Type SNOMED Code ICD Code Dates Problem Status W/U Status Risk Notes Problem Osteoarthritis (787603534) Unspecified osteoarthritis, unspecified site (M19.90) Added On:09/05 Active confirmed Problem Arthralgia of the pelvic region and thigh (640114725) Pain in right hip (M25.551) Added On:09/03 Active confirmed Problem Solitary sacroiliitis (749975091) Sacroiliitis, not elsewhere classified (M46.1) Added On:09/05 Active confirmed Problem Lumbosacral spondylosis without myelopathy (68012214) Spondylosis without myelopathy or radiculopathy, lumbar region (M47.816) Added On:09/03 Active confirmed Problem Lumbosacral spondylosis without myelopathy (disorder) (67473864) Spondylosis without myelopathy or radiculopathy, lumbosacral region (M47.817) Added On:09/03 Active confirmed Problem Lumbosacral radiculopathy (4728065) Intervertebral disc disorders with radiculopathy, lumbosacral region (M51.17) Added On:09/03 Active confirmed Problem Degeneration of lumbosacral intervertebral disc (70808145) Other intervertebral disc degeneration, lumbosacral region (M51.37) Added On:09/03 Active confirmed Problem Lumbar radiculopathy (081801915) Radiculopathy, lumbar region (M54.16) Added On:09/03 Active confirmed Problem Lumbosacral radiculopathy (9276268) Radiculopathy, lumbosacral region (M54.17) Added On:09/03 Active confirmed Problem Spinal stenosis of lumbar region (16442832) Intervertebral disc stenosis of neural canal of lumbar region (M99.53) Added On:09/03 Active confirmed Plan Of Treatment Pending Test Test Name Order Date X ray : Hip, right 09/03/2020 Insurance Providers Payer Name Payer Address Payer Phone Subscriber Number Group Number Insured Name Patient Relationship to Insured Coverage Start Date Coverage End Date [facility] [address] [place] [phone] [id number] ROMEL REDD Self - patient is the insured Medical (General) History Medical History History ICD Code Stomach ulcers Depression Anxiety Bipolar Schizophrenia Surgical History Surgery Date(Month/Year) Hysterectomy
[2025-06-17 12:28] LABS: Hematocrit 43.2 % (37.0-47.0); Hemoglobin 14.7 g/dL (12.0-15.0); Immature Granulocyte Percent A 0.7 % (0-0.5); Lymphocytes Absolute Auto 0.89 K/mm3 (0.9-3.2); Mean Corpuscular HGB Conc 34.0 g/dl (32-36); Mean Corpuscular Hemoglobin 30.2 pg (26-34); Mean Corpuscular Volume 88.9 fl (80-100); Nucleated Red Blood Cells Absolute Auto 0.000 K/mm3 (0.0-0.012); Nucleated Red Blood Cells Perc 0.0 % (0.0-0.2); Platelet Count Result 328 k/mm3 (150-375); Red Blood Count 4.86 M/mm3 (4.2-5.4); White Blood Count 18.3 K/mm3 (4.5-10.0)
--- OUTSIDE RECORDS SUMMARY | 2025-06-17 12:28 | XMS_ITS | Clinical Summary ---
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
--- OUTSIDE RECORDS SUMMARY | 2025-06-17 12:28 | XMS_ITS | Clinical Summary ---
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
--- NOTE | 2025-06-17 12:29 | ED.ABDPAIN ---
HPI - Abdominal Pain General Chief Complaint: Abdominal Pain Stated Complaint: abd pain Time Seen by Provider: 06/17/25 12:19 Source: patient Mode of arrival: ambulatory Limitations: no limitations History of Present Illness HPI narrative: 49 years old white female came from home by private car complaining of pain at the right abdomen and started last night, steady, denying any aggravating or relieving factors, radiating to right flank, associated with burning urination for the last few days. History of hysterectomy and ovarian cyst removed. Patient denies any fever or chills or nausea or vomiting or diarrhea or constipation vaginal bleeding or discharge. Related Data Home Medications ?Medication ?Instructions ?Recorded ?Confirmed ?Last Taken ?Type spironolactone 100 mg tablet 100 mg PO DAILY 04/29/19 06/17/25 06/17/25 History lorazepam 1 mg tablet 1 mg PO BID 05/20/20 06/17/25 06/16/25 History buspirone 10 mg tablet 10 mg PO BID 05/31/21 06/17/25 06/17/25 History trazodone 50 mg tablet 50 mg PO QHS 05/31/21 06/17/25 06/16/25 History bupropion HCl 150 mg 24 hr tablet, 150 mg PO DAILY 04/11/23 06/17/25 06/17/25 History extended release bupropion HCl 300 mg 24 hr tablet, 300 mg PO DAILY 04/11/23 06/17/25 06/17/25 History extended release oxybutynin chloride 5 mg tablet 5 mg PO HS 04/11/23 06/17/25 06/16/25 History Allergies Allergy/AdvReac Type Severity Reaction Status Date / Time tree nut Allergy Severe mouth Verified 06/17/25 17:37 swelling latex Allergy Intermediate RASH Verified 06/17/25 17:37 levofloxacin Allergy Mild Rash Verified 06/17/25 17:37 Penicillins Allergy Unknown Itching Verified 06/17/25 17:37 Review of Systems Review of Systems: All systems reviewed & are unremarkable except as noted in HPI and below PMFSH Past Medical History Medical History Duodenal ulcer Colon cancer screening Essential hypertension Costochondritis, acute Cough (11/14/21) Paresthesia of hand, bilateral Obesity (BMI 30-39.9) GERD (gastroesophageal reflux disease) Bipolar disorder Schizophrenia IBS (irritable bowel syndrome) Liver lesion Abdominal pain Back pain Anxiety Mood disorder Surgical History Surgical History History of carpal tunnel repair Family History Family History Other Asthma Family history of coronary artery disease Hypertension Social History Social History Smoking status: Never smoker Second hand tobacco smoke exposure: No Alcohol intake: current Drinks per week: 6 Substance use: never Substance use type: does not use Lack of Transportation: No Lack of Food: Never True Current Housing: I Have Housing Concerned About Future Housing: No Difficulty Paying Gas/Electric Bills: No Difficulty Paying for Meds: No Currently Unemployed: No Education: Trade/Vocational Certificate Difficulty w/ Childcare or Family Care: No Living arrangements: with family Gender identity (if verbalized by the patient): Female Sexual Orientation (if Verbalized by the Patient): Straight or Heterosexual Spiritual care concerns: No Agree to blood products: Yes Exam Narrative: General appearance: Well-developed, well-nourished Skin: Normal color Head: Normocephalic, nontraumatic Eyes: Clear conjunctiva ENT: Oropharynx normal, ears normal, nose normal Neck: Supple, nontender Chest and respiratory: Airway patent, no respiratory distress, no accessory muscle use Heart: Regular rate/rhythm Abdomen: Soft, slight tenderness to right abdomen and right flank area, no organomegaly, quiet bowel sounds Vascular: Normal peripheral pulses, normal capillary refill. Musculoskeletal: Normal range of motion, nontender back Neurologic: Alert and oriented ?3, SCIENCE AND OPERATIONS OFFICER is normal as tested, no gross motor deficit Course Vital Signs Vital signs: Vital Signs Temperature 38.1 C H 06/17/25 10:49 Pulse Rate 122 H 06/17/25 10:49 Respiratory Rate 19 06/17/25 10:49 Blood Pressure 119/85 06/17/25 10:49 Pulse Oximetry 100 06/17/25 10:49 Oxygen Delivery Room Air 06/17/25 10:49 Temperature 36.9 C 06/17/25 20:00 Pulse Rate 92 06/17/25 20:00 Respiratory Rate 17 06/17/25 20:00 Blood Pressure 95/50 L 06/17/25 20:00 Pulse Oximetry 97 06/17/25 20:00 Oxygen Delivery Room Air 06/17/25 10:49 MDM MDM Narrative Medical decision making narrative: Patient presents with right abdominal and right flank pain started last night associated with burning urination Vital signs showing heart rate of 122, temperature 38.1? otherwise within normal limit Physical examination showing tenderness right abdomen and right flank area Differential diagnosis include urinary tract infection, colitis, diverticulitis, appendicitis, cholecystitis, dehydration, electrolyte imbalance Blood workup today includes CBC, CMP, lipase showed WBC 18.3, sodium 132, Urinalysis showed evidence of infection CT abdomen and pelvis with IV contrast showed ascending urinary tract infection Patient came with fever, elevated white count, CT scan consistent with ascending urinary tract infection, urine analysis showing urinary tract infection Rocephin started Admit to hospitalist. Differential Diagnosis Differential Diagnosis: As above Lab Data 06/17/25 12:14 06/17/25 12:14 Labs: Lab Results 06/17/25 Range/Units 12:14 WBC 18.3 H (4.5-10.0) K/mm3 RBC 4.86 (4.2-5.4) M/mm3 Hgb 14.7 (12.0-15.0) g/dL Hct 43.2 (37.0-47.0) % MCV 88.9 (80-100) fl MCH 30.2 (26-34) pg MCHC 34.0 (32-36) g/dl RDW 11.4 L (11.5-14.5) % Plt Count 328 (150-375) k/mm3 MPV 8.2 (7.4-10.4) fl Immature Gran % (Auto) 0.7 H (0-0.5) % Neut % (Auto) 86.0 H (45.5-73.1) % Lymph % (Auto) 4.9 L (18.3-44.2) % [place] % (Auto) 8.1 (2.6-8.5) % Eos % (Auto) 0.0 (0-4.4) % Baso % (Auto) 0.3 (0.2-1.2) % Lymph # (Auto) 0.89 L (0.9-3.2) K/mm3 [place] # (Auto) 1.5 H (0.1-0.6) K/mm3 Eos # (Auto) 0.0 (0-0.3) K/mm3 Baso # (Auto) 0.1 (0.0-0.1) K/mm3 Abs Immat Gran (auto) 0.13 H (0.00-0.031) K/mm3 Absolute Neuts (auto) 15.8 H (1.3-6.7) K/mm3 Absolute Nucleated RBC 0.000 (0.0-0.012) K/mm3 Nucleated RBC % 0.0 (0.0-0.2) % Sodium 132 L (137-145) mmol/L Potassium 3.9 (3.4-5.0) mmol/L Chloride 94 L (98-107) mmol/L Carbon Dioxide 29 (22-30) mmol/L Anion Gap 9 (4-12) mmol/L BUN 14 (7-17) mg/dL Creatinine 1.00 (0.7-1.0) mg/dL Estim Creat Clear Calc 59 ml/min Estimated GFR 59 (59 - ) Glucose 115 H (65-110) mg/dL Calcium 10.5 H (8.4-10.2) mg/dL Total Bilirubin 0.8 (0.2-1.3) mg/dL AST 31 (14-36) U/L ALT 23 (6-35) U/L Alkaline Phosphatase 80 (38-126) U/L Total Protein 8.0 (6.3-8.2) g/dL Albumin 4.9 (3.5-5.1) g/dL Lipase 66 (23-300) U/L Urine Color Yellow (Yellow) Urine Appearance Clear (Clear) Urine pH 5.5 (5.0-9.0) Ur Specific [place] 1.017 (1.001-1.035) Urine Protein Negative (Negative) mg/dL Urine Glucose (UA) Negative (Negative) mg/dL Urine Ketones 1+ H (Negative) mg/dL Ur Blood (Man) Negative (Negative) Urine Nitrate Negative (Negative) Urine Bilirubin Negative (Negative) Urine Urobilinogen 0.2 (<2.0) mg/dL Leukocyte Esterase Rfl 1+ H (Negative) WOLFGANG/UL Urine RBC 0-2 (0-2) /hpf Urine WBC 21-50 H (0-3) /hpf Ur Squamous Epith Cells None seen (Few) /hpf Urine Bacteria 4+ H /hpf Urine Casts 0-2 Imaging Data Radiologist's impression: ITS Impressions Abdomen/Pelvis CT 06/17/25 13:28 IMPRESSION: 1. Mild proximal right urothelial enhancement, suspicious for ascending urinary tract infection. Clinically correlate. Critical Care Time Critical Care Time Critical Care Time: Yes Time Type: Intermittent Initial evaluation, discuss w/ involved parties, attempting to gather old records: N/A Documenting medical record: 5 minutes Review of results (EKG's, labs, imaging): 5 minutes Serial repeat bedside evaluation: 10 minutes Discussing case with multiple memebers of the care team and consultants: N/A Total Critical Care Time: 20 Discharge Plan Discharge Clinical Impression: Urinary tract infection, Abdominal pain Patient Disposition: Still a Patient Condition: Stable
[2025-06-17] MEDS: SODIUM CHLORIDE 0.9% IV 1,000 ML 999 ML IV CONT ×2 (12:47→15:50)
[2025-06-17] MEDS: MORPHINE SULFATE (*CRX) 4 MG/ML INJ IV PUSH (12:48)
[2025-06-17] MEDS: ONDANSETRON INJ 4 MG/2 ML VIAL IV PUSH (12:48)
[2025-06-17 12:49] LABS: Alanine Aminotransferase 23 U/L (6-35); Albumin Level 4.9 g/dL (3.5-5.1); Alkaline Phosphatase 80 U/L (38-126); Anion Gap 9 mmol/L (4-12); Aspartate Amino Transferase 31 U/L (14-36); Bilirubin,Total 0.8 mg/dL (0.2-1.3); Blood Urea Nitrogen 14 mg/dL (7-17); Calcium 10.5 mg/dL (8.4-10.2); Carbon Dioxide 29 mmol/L (22-30); Chloride 94 mmol/L (98-107); Estimated CRCL calculation 59 ml/min; Estimated Glomerular Filt Rate 59; Glucose 115 mg/dL (65-110); Lipase 66 U/L (23-300); Potassium 3.9 mmol/L (3.4-5.0); Sodium 132 mmol/L (137-145); Total Protein 8.0 g/dL (6.3-8.2)
[2025-06-17 15:31] LABS: Add Urine Microscopic? YES; Appearance Urine Clear (Clear); Glucose Urine UA Negative (Negative); Leukocyte Esterase Ur 1+ LEU/UL (Negative); Nitrate Urine Negative (Negative); Non Pathogenic Casts 0-2; Specific Grav Ur 1.017 (1.001-1.035)
[2025-06-17] MEDS: cefTRIAXone 1 GM in SODIUM CHLORIDE 0.9% IV 50 ML 100 ML IVPB (15:50)
[2025-06-17] MEDS: KETOROLAC 30 MG/ML VIAL (*BKC) IV PUSH (15:50)
[2025-06-17] MEDS: ACETAMINOPHEN 325 MG TABLET 650 MG PO (16:03)
[2025-06-17] MEDS: SODIUM CHLORIDE 0.9% IV 1,000 ML 125 ML IV CONT (16:13)
--- NOTE | 2025-06-17 16:34 | WPCEDHO ---
ED Hand Off Checklist All vitals saved:Y IV Site documented:Y All med administrations documented:Y Triage Note Triage Note pt ambulatory to ED from Urgent 06/17/25 11:56 Care for c/o RUQ pain radiating to her back since last night. pt c/o a little nausea, pt also c/ o chills and denies fevers at home. pt says at they did a UA and found a UTI. pt c/o frequency but denies burning. pt denies HX of kidney stones 1155- No changes from above Allergies tree nut Allergy (Severe, Verified 06/17/25 10:53) mouth swelling latex Allergy (Intermediate, Verified 06/17/25 10:53) RASH levofloxacin Allergy (Mild, Verified 06/17/25 10:53) Rash Penicillins Allergy (Unknown, Verified 06/17/25 10:53) Itching Family History (Last Reviewed 06/17/25 @ 15:12 by Bari Chew MD) Other Asthma Family history of coronary artery disease Hypertension Active Medications including assessments/comments Acetaminophen (Acetaminophen 325 Mg Tablet) 650 mg PO Q4H PRN PRN Reason: Mild Pain (1-3) or Fever Last Admin: 06/17/25 16:03 Dose: 650 mg Documented By: TLB MAR Pain Assessment Document 06/17/25 16:03 TLB (Rec: 06/17/25 16:03 TLB [id number]) Pain Evaluation Pain Evaluation Assessment Pain Scale Pain Scale Used Numeric (1 - 10) Order Parameters Order Parameters for Pain Level 7-10 (Severe) Administering this Pain Med Self Report Pain Assessment Reported Pain Level 9 Pain Score Pain Score 9: Self Report Comments Additional MAR Pain given for fever Comments Sodium Chloride (Normal Saline Iv) 1,000 mls @ 125 mls/hr IV CONT .Q8H EVERARDO Last Admin: 06/17/25 16:13 Dose: 125 mls/hr Documented By: AMR Infusion/Titration Document 06/17/25 16:13 AMR (Rec: 06/17/25 16:13 AMR [id number]) Intake IV Site Peripheral Access Right Antecubital Container Volume 1,000 Waste Amount 0 Dosing Infusion Rate 125 Cumulative Dose Not Applicable Increase/Decrease Started Elapsed Time Elapsed Time ( 0m minutes) Administered/Completed Medications Discontinued Medications Sodium Chloride (Normal Saline Iv) 1,000 mls @ 999 mls/hr IV CONT .Q1H1M STA Stop: 06/17/25 13:29 Last Infusion: 06/17/25 13:50 Dose: Infused Documented By: Admin: 06/17/25 12:47 Dose: 999 mls/hr Documented By: TLB Ceftriaxone Sodium 1 gm/ (Sodium Chloride) 50 mls @ 100 mls/hr IVPB ONCE STA Stop: 06/17/25 15:51 Last Infusion: 06/17/25 16:12 Dose: Infused Documented By: Admin: 06/17/25 15:50 Dose: 100 mls/hr Documented By: TLB Sodium Chloride (Normal Saline Iv) 1,000 mls @ 999 mls/hr IV CONT .Q1H1M STA Stop: 06/17/25 16:22 Last Admin: 06/17/25 15:50 Dose: 999 mls/hr Documented By: TLB Ketorolac Tromethamine (Ketorolac 30 Mg/Ml Vial (*Bkc)) 30 mg IV PUSH ONCE STA Stop: 06/17/25 15:23 Last Admin: 06/17/25 15:50 Dose: 30 mg Documented By: TLB Morphine Sulfate (Morphine Sulfate (*Crx) 4 Mg/Ml Inj) 4 mg IV PUSH ONCE STA Stop: 06/17/25 12:30 Last Admin: 06/17/25 12:48 Dose: 4 mg Documented By: TLB Ondansetron HCl (Ondansetron Inj 4 Mg/2 Ml Vial) 4 mg IV PUSH ONCE STA Stop: 06/17/25 12:30 Last Admin: 06/17/25 12:48 Dose: 4 mg Documented By: ASHLEY Interventions/Assessments IV / Saline Lock, Insert Start: 06/17/25 11:55 Freq: STAT Status: Active Protocol: Document 06/17/25 12:18 TLB (Rec: 06/17/25 12:18 TLB [id number]) IV Assessment Peripheral Access Right Antecubital IV Catheter Access Initiated IV Insertion Date 06/17/25 IV Insertion Time 14:10 Catheter Gauge 20 IV Insertion 1 Attempts IV Site Assessment WNL IV Care and WNL,Access Locked Maintenance PA: Gastrointestinal Assessment Start: 06/17/25 10:49 Freq: Status: Active Protocol: Document 06/17/25 11:57 TLB (Rec: 06/17/25 11:58 TLB [id number]) GI Assessment Gastrointestinal Nausea,Pain Symptoms Description Soft,Tender All Quadrants Bowel Sounds Active Pattern Normal Date of Last Bowel 06/16/25 Movement Last Vital Signs Temperature 103.0 F H 06/17/25 15:45 Pulse Rate 112 H 06/17/25 15:45 Respiratory Rate 16 06/17/25 15:45 Pulse Oximetry 98 06/17/25 15:45 Blood Pressure 101/66 06/17/25 15:45 Blood Pressure Mean 77 06/17/25 15:45 Blood Pressure Position Sitting 06/17/25 10:49 Oxygen Delivery Room Air 06/17/25 10:49 Weight 73.8 kg 06/17/25 11:56 Last Result - Abnormals Only WBC 18.3 K/mm3 (4.5-10.0) H 06/17/25 12:14 RDW 11.4 % (11.5-14.5) L 06/17/25 12:14 Immature Gran % (Auto) 0.7 % (0-0.5) H 06/17/25 12:14 Neut % (Auto) 86.0 % (45.5-73.1) H 06/17/25 12:14 Lymph % (Auto) 4.9 % (18.3-44.2) L 06/17/25 12:14 Lymph # (Auto) 0.89 K/mm3 (0.9-3.2) L 06/17/25 12:14 [place] # (Auto) 1.5 K/mm3 (0.1-0.6) H 06/17/25 12:14 Abs Immat Gran (auto) 0.13 K/mm3 (0.00-0.031) H 06/17/25 12:14 Absolute Neuts (auto) 15.8 K/mm3 (1.3-6.7) H 06/17/25 12:14 Sodium 132 mmol/L (137-145) L 06/17/25 12:14 Chloride 94 mmol/L (98-107) L 06/17/25 12:14 Glucose 115 mg/dL (65-110) H 06/17/25 12:14 Calcium 10.5 mg/dL (8.4-10.2) H 06/17/25 12:14 Urine Ketones 1+ mg/dL (Negative) H 06/17/25 12:14 Leukocyte Esterase Rfl 1+ [place]/UL (Negative) H 06/17/25 12:14 Urine WBC 21-50 /hpf (0-3) H 06/17/25 12:14 Urine Bacteria 4+ /hpf H 06/17/25 12:14 Most Recent Suicide Severity Rating Suicide Severity Rating NO RISK INDICATED 06/17/25 11:56
--- NOTE | 2025-06-17 17:21 | ADMGEN ---
This patient, Elizabeth Mustafa, was admitted to Medical Room 251-01. Patient/family oriented to hospital policies and general routines including ID bracelet, bed and alarms, visiting hours, pain management, procedures, bathroom and other care routines, personal items, smoking policy, room service/diet, and visiting hours. Information on how to activate the Rapid Response Team has been discussed. Patient/Family are encouraged to report perceived risks to care and to ask questions if they do not understand what they are told or what they should do.
[2025-06-17] MEDS: HYDROcodone/acetaminophen (*CRX) 5-325 MG TABLET 1 TAB PO (19:11)
[2025-06-17] MEDS: LORazepam (*CRX) 1 MG TABLET PO (21:30)
[2025-06-17] MEDS: PANTOPRAZOLE 40 MG TABLET PO (21:30)
[2025-06-17] MEDS: DICYCLOMINE HCL 10 MG CAPSULE PO (23:29)
[2025-06-18] MEDS: HYDROcodone/acetaminophen (*CRX) 5-325 MG TABLET 1 TAB PO ×5 (00:47→20:14)
[2025-06-18] MEDS: SODIUM CHLORIDE 0.9% IV 1,000 ML 125 ML IV CONT ×3 (00:48→16:46)
[2025-06-18 04:25] VITALS: BP 96/56; PULSE 101; RESP 17; TEMP 36.8; O2SAT 95
--- NOTE | 2025-06-18 04:40 | PM.IMHP2 ---
H&P: HPI History of Present Illness Date/Time: 06/18/25 04:40 Chief Complaint: Pain in her right upper back radiating into her abdomen Narrative: 49-year-old female with a past medical history duodenal ulcer, GERD, overactive bladder, bipolar disorder with schizoaffective disorder hysterectomy and prior bowel obstruction who presented to the ER with right flank pain that radiated to the anterior abdomen that started on the night of the . The patient reports that she began having dysuria and increased urinary frequency on the . Then on the she began having anterior abdominal pain that radiated through to the back and was worse with palpation. She also began having chills and fever up to 101 at home. She reports that her pain in her abdomen worsened on the and was a 9/10 in intensity causing her to come to the ER. She was having some nausea but no vomiting. Is pain was different than her usual symptoms of irritable bowel. She did have some CVA tenderness on palpation. She reports she does could not find a comfortable position. She has been having normal bowel movements. In the ER labs demonstrated white count and patient had a T-max of 103?. Her urinalysis demonstrated 4+ bacteria 21-50 wbc's and 1+ esterase and contrasted CT demonstrated mid proximal right urothelial enhancement suspicious for ascending UTI. Review of Systems Review of Systems: 12 systems were reviewed with pertinent positives and negatives per HPI. Except as documented in the HPI, all other systems were reviewed and are negative. [facility] Past Medical History Medical History (Updated 06/18/25 @ 05:06 by Bertha Burris DO) Gastric ulcer (06/2020) Vertigo Onychomycosis Drug-seeking behavior Chronic rhinitis Chronic idiopathic constipation Chronic renal insufficiency, stage II (mild) Duodenal ulcer (06/2020) Essential hypertension Costochondritis, acute Obesity (BMI 30-39.9) GERD (gastroesophageal reflux disease) Bipolar disorder Schizophrenia IBS (irritable bowel syndrome) Liver lesion Anxiety Surgical History Surgical History (Updated 06/18/25 @ 05:06 by Bertha Burris DO) History of esophagogastroduodenoscopy (EGD) (06/2020) History of colonoscopy (03/2023) History of carpal tunnel repair Family History Family History Other Asthma Family history of coronary artery disease Hypertension Social History Social History (Updated 06/18/25 @ 04:59 by Bertha Burris DO) Social History: Code status: Full code Surrogate decision maker: Smoking status: Never smoker Second hand tobacco smoke exposure: No Alcohol intake: current Drinks per week: 6 Substance use: never Substance use type: does not use Lack of Transportation: No Lack of Food: Never True Current Housing: I Have Housing Concerned About Future Housing: No Difficulty Paying Gas/Electric Bills: No Difficulty Paying for Meds: No Currently Unemployed: No Education: Trade/Vocational Certificate Difficulty w/ Childcare or Family Care: No Living arrangements: with family Gender identity (if verbalized by the patient): Female Sexual Orientation (if Verbalized by the Patient): Straight or Heterosexual Spiritual care concerns: No Agree to blood products: Yes Meds Home Medications and Allergies Home Medications ?Medication ?Instructions ?Recorded ?Confirmed ?Type spironolactone 100 mg tablet 100 mg PO DAILY 04/29/19 06/17/25 History lorazepam 1 mg tablet 1 mg PO BID 05/20/20 06/17/25 History buspirone 10 mg tablet 10 mg PO BID 05/31/21 06/17/25 History trazodone 50 mg tablet 50 mg PO QHS 05/31/21 06/17/25 History bupropion HCl 150 mg 24 hr tablet, 150 mg PO DAILY 04/11/23 06/17/25 History extended release bupropion HCl 300 mg 24 hr tablet, 300 mg PO DAILY 04/11/23 06/17/25 History extended release oxybutynin chloride 5 mg tablet 5 mg PO HS 04/11/23 06/17/25 History dicyclomine 10 mg capsule 10 mg PO TID PRN abdominal 09/24/24 06/17/25 Rx discomfort #90 caps omeprazole 20 mg capsule,delayed See Rx Instructions .Route 09/24/24 06/17/25 Rx release .COMPLEX #180 caps lisinopril 5 mg tablet See Rx Instructions .Route 04/14/25 06/17/25 Rx .COMPLEX #90 tabs baclofen 10 mg tablet See Rx Instructions .Route 05/09/25 06/17/25 Rx .COMPLEX #180 tabs linaclotide 145 mcg capsule 145 mcg PO DAILY #30 caps 06/11/25 06/17/25 Rx (Linzess) Allergies Allergy/AdvReac Type Severity Reaction Status Date / Time tree nut Allergy Severe mouth Verified 06/17/25 17:37 swelling latex Allergy Intermediate RASH Verified 06/17/25 17:37 levofloxacin Allergy Mild Rash Verified 06/17/25 17:37 Penicillins Allergy Unknown Itching Verified 06/17/25 17:37 Vital Signs Vital Signs - 24 hr 06/17/25 10:49 06/17/25 11:51 06/17/25 12:16 Temperature 100.5 F H Pulse Rate 122 H 79 Respiratory Rate 19 16 Blood Pressure 119/85 125/79 115/78 Pulse Oximetry 100 100 98 Oxygen Delivery Room Air 06/17/25 12:30 06/17/25 12:32 06/17/25 13:01 Temperature Pulse Rate 119 H 92 Respiratory Rate 16 16 Blood Pressure 115/78 112/78 Pulse Oximetry 98 100 93 Oxygen Delivery 06/17/25 13:02 06/17/25 14:00 06/17/25 14:47 Temperature Pulse Rate 110 H 113 H Respiratory Rate 16 Blood Pressure 112/70 Pulse Oximetry 91 96 95 Oxygen Delivery 06/17/25 15:05 06/17/25 15:16 06/17/25 15:17 Temperature Pulse Rate 111 H Respiratory Rate 16 Blood Pressure 110/81 114/75 Pulse Oximetry 96 95 96 Oxygen Delivery 06/17/25 15:45 06/17/25 17:33 06/17/25 20:00 Temperature 103.0 F H 99.6 F 98.5 F Pulse Rate 112 H 104 H 92 Respiratory Rate 16 16 17 Blood Pressure 101/66 96/58 L 95/50 L Pulse Oximetry 98 93 97 Oxygen Delivery 06/18/25 04:25 Temperature 98.3 F Pulse Rate 101 H Respiratory Rate 17 Blood Pressure 96/56 L Pulse Oximetry 95 Oxygen Delivery Exam Narrative: Weight 76.4 BMI 29.8 Const: Other: Mildly ill-appearing, appears stated age, overweight HENMT: Other: Mucous membranes are tacky, no oral pharyngeal erythema, head is normocephalic atraumatic Eyes: Other: Pupils are equal and reactive, no conjunctival pallor, no scleral icterus Neck: Other: No JVD, no lymphadenopathy Resp: Other: Clear to auscultation bilaterally, no increased work of breathing Cardio: Other: Sinus tachycardia, 2+ bilateral radial and pedal pulses, no murmur GI: Other: Soft, tender in the right lateral abdomen around to the right posterior flank, right CVA tenderness on percussion, normoactive bowel sounds, no organomegaly Skin: Other: Warm to touch, non jaundice, no pallor Neuro: Other: Alert and oriented, speech is clear, no facial asymmetry, no localizing neurologic deficits noted during the course of conversation Extrem: Other: No clubbing, cyanosis or edema Psych: Other: Appropriate mood and affect, pleasant and cooperative, judgment and insight intact Results Labs Labs: Laboratory Tests 06/17/25 12:14 06/17/25 12:14 06/17/25 12:14 WBC 18.3 H RBC 4.86 Hgb 14.7 Hct 43.2 MCV 88.9 MCH 30.2 MCHC 34.0 RDW 11.4 L Plt Count 328 MPV 8.2 Immature Gran % (Auto) 0.7 H Neut % (Auto) 86.0 H Lymph % (Auto) 4.9 L [place] % (Auto) 8.1 Eos % (Auto) 0.0 Baso % (Auto) 0.3 Lymph # (Auto) 0.89 L [place] # (Auto) 1.5 H Eos # (Auto) 0.0 Baso # (Auto) 0.1 Abs Immat Gran (auto) 0.13 H Absolute Neuts (auto) 15.8 H Absolute Nucleated RBC 0.000 Nucleated RBC % 0.0 Sodium 132 L Potassium 3.9 Chloride 94 L Carbon Dioxide 29 Anion Gap 9 BUN 14 Creatinine 1.00 Estim Creat Clear Calc 59 Estimated GFR 59 Glucose 115 H Calcium 10.5 H Total Bilirubin 0.8 AST 31 ALT 23 Alkaline Phosphatase 80 Total Protein 8.0 Albumin 4.9 Lipase 66 Urine Color Yellow Urine Appearance Clear Urine pH 5.5 Ur Specific [place] 1.017 Urine Protein Negative Urine Glucose (UA) Negative Urine Ketones 1+ H Ur Blood (Man) Negative Urine Nitrate Negative Urine Bilirubin Negative Urine Urobilinogen 0.2 Leukocyte Esterase Rfl 1+ H Urine RBC 0-2 Urine WBC 21-50 H Ur Squamous Epith Cells None seen Urine Bacteria 4+ H Urine Casts 0-2 Impressions Abdomen/Pelvis CT 06/17/25 13:28 IMPRESSION: 1. Mild proximal right urothelial enhancement, suspicious for ascending urinary tract infection. Clinically correlate. Quality VTE Prophylaxis VTE prophylaxis: pharmacologic ordered (Lovenox 40 mg subQ daily) Assessment and Plan Assessment and plan (1) Urinary tract infection: Qualifiers: Urinary tract infection type: acute pyelonephritis Qualified Code(s): N10 - Acute pyelonephritis Code(s): N39.0 - Urinary tract infection, site not specified Status: Acute (2) Sepsis: Qualifiers: Sepsis acute organ dysfunction status: without acute organ dysfunction Sepsis type: sepsis due to unspecified organism Qualified Code(s): A41.9 - Sepsis, unspecified organism Code(s): A41.9 - Sepsis, unspecified organism Status: Acute (3) Acute hyponatremia: Code(s): E87.1 - Hypo-osmolality and hyponatremia Status: Acute (4) Essential hypertension: Code(s): I10 - Essential (primary) hypertension Status: Acute (5) GERD (gastroesophageal reflux disease): Qualifiers: Esophagitis presence: without esophagitis Qualified Code(s): K21.9 - Gastro-esophageal reflux disease without esophagitis Code(s): K21.9 - Gastro-esophageal reflux disease without esophagitis Status: Acute Plan Ascending urinary tract infection with sepsis. Sepsis criteria met with fever, tachycardic in the setting of acute UTI. Blood cultures urine cultures have been obtained and are pending. Patient was started on empiric antibiotic therapy with Rocephin. Patient did have mild low systolic blood pressures she received 30 mL/kilos fluid bolus in the ER. Blood pressures have remained soft but are stable. Will continue maintenance IV fluids at 125 mL an hour. Will monitor I&O's closely. Will hold the patient's home lisinopril and spironolactone. Patient does have a history of overactive bladder and she may have some component of incomplete bladder emptying with this medication may have a precipitated her urinary tract infection. Will hold oxybutynin. Postvoid residual was 0. Will hold the patient's home lisinopril due to soft blood pressures. Will resume the patient's home psychiatric and GI medications. Patient has been admitted as observation status. MEDICAL DECISION MAKING NARRATIVE -Spoke with the ED provider in detail regarding patient's evaluation, workup and management -Patient seen and examined at bedside -Collaborated with patient's nurse at the bedside in detail and addressed all concerns -Labs, electrolytes, radiology, investigations and test results personally reviewed and interpreted unless otherwise specified -ED/Consult/Nursing/Ancilliary notes on the chart reviewed and appreciated -applicable past medical records and labs were reviewed and unless stated otherwise. -Spoke with patient at bedside and diagnosis, plan of care was discussed and questions answered. Hospitalist MIPS Advance Care Plan I have confirmed that the patient's Advanced Care Plan is present, code status is documented, or surrogate decision maker is listed in patient medical record.: Yes Medication Reconciliation I have utilized all available resources to obtain, update and review the patients current medications (includes all prescriptions, OTC, herbals, cannabis, and nutritional supplements).: Yes
[2025-06-18 05:22] LABS: Hematocrit 35.9 % (37.0-47.0); Hemoglobin 11.8 g/dL (12.0-15.0); Mean Corpuscular HGB Conc 32.9 g/dl (32-36); Mean Corpuscular Hemoglobin 30.3 pg (26-34); Mean Corpuscular Volume 92.1 fl (80-100); Platelet Count Result 237 k/mm3 (150-375); Red Blood Count 3.90 M/mm3 (4.2-5.4); White Blood Count 13.5 K/mm3 (4.5-10.0)
[2025-06-18 05:44] LABS: Anion Gap 3 mmol/L (4-12); Blood Urea Nitrogen 9 mg/dL (7-17); Calcium 8.5 mg/dL (8.4-10.2); Carbon Dioxide 26 mmol/L (22-30); Chloride 103 mmol/L (98-107); Estimated CRCL calculation 65 ml/min; Estimated Glomerular Filt Rate > 60; Glucose 89 mg/dL (65-110); Potassium 4.0 mmol/L (3.4-5.0); Sodium 132 mmol/L (137-145)
[2025-06-18 08:00] VITALS: BP 103/59; PULSE 99; RESP 14; TEMP 39.3; O2SAT 94
[2025-06-18] MEDS: PANTOPRAZOLE 40 MG TABLET PO ×2 (08:29→16:39)
[2025-06-18] MEDS: LORazepam (*CRX) 1 MG TABLET PO ×2 (08:29→16:39)
[2025-06-18] MEDS: buPROPion HCL XL (24 HR) 150 MG TABCR PO (08:29)
[2025-06-18] MEDS: LINACLOTIDE 145 MCG CAPSULE PO (08:29)
[2025-06-18] MEDS: buPROPion HCL XL (24 HR) 150 MG TABCR 300 MG PO (08:29)
[2025-06-18 11:34] VITALS: O2SAT 97
--- NOTE | 2025-06-18 12:01 | PM.IMPN2 ---
Assessment and Plan Assessment and Plan (1) Urinary tract infection: Qualifiers: Urinary tract infection type: acute pyelonephritis Qualified Code(s): N10 - Acute pyelonephritis Code(s): N39.0 - Urinary tract infection, site not specified Status: Acute (2) Sepsis: Qualifiers: Sepsis type: sepsis due to unspecified organism Sepsis acute organ dysfunction status: without acute organ dysfunction Qualified Code(s): A41.9 - Sepsis, unspecified organism Code(s): A41.9 - Sepsis, unspecified organism Status: Acute (3) Acute hyponatremia: Code(s): E87.1 - Hypo-osmolality and hyponatremia Status: Acute (4) Essential hypertension: Code(s): I10 - Essential (primary) hypertension Status: Acute (5) GERD (gastroesophageal reflux disease): Qualifiers: Esophagitis presence: without esophagitis Qualified Code(s): K21.9 - Gastro-esophageal reflux disease without esophagitis Code(s): K21.9 - Gastro-esophageal reflux disease without esophagitis Status: Acute Plan Ascending urinary tract infection with sepsis. Sepsis criteria met with fever, tachycardic in the setting of acute UTI. Blood cultures urine cultures have been obtained and are pending. Patient was started on empiric antibiotic therapy with Rocephin. Patient did have mild low systolic blood pressures she received 30 mL/kilos fluid bolus in the ER. Blood pressures have remained soft but are stable. Will continue maintenance IV fluids at 125 mL an hour. Will monitor I&O's closely. Will hold the patient's home lisinopril and spironolactone. Patient does have a history of overactive bladder and she may have some component of incomplete bladder emptying with this medication may have a precipitated her urinary tract infection. Will hold oxybutynin. Postvoid residual was 0. Will hold the patient's home lisinopril due to soft blood pressures. Will resume the patient's home psychiatric and GI medications. Code status Full DVT prophylaxis Lovenox Subjective Date/time seen: 06/18/25 12:01 Interval history: Patient was seen during the morning rounds today. Patient is feeling better. No shortness of breath or chest pain. No abdominal pain, nausea, no vomiting. Review of Systems Review of Systems: 12 systems were reviewed with pertinent positives and negatives per HPI. Except as documented in the HPI, all other systems were reviewed and are negative. Exam Narrative: Weight 76.4 BMI 29.8 Const: Other: Mildly ill-appearing, appears stated age, overweight HENMT: Other: Mucous membranes are tacky, no oral pharyngeal erythema, head is normocephalic atraumatic Eyes: Other: Pupils are equal and reactive, no conjunctival pallor, no scleral icterus Neck: Other: No JVD, no lymphadenopathy Resp: Other: Clear to auscultation bilaterally, no increased work of breathing Cardio: Other: Sinus tachycardia, 2+ bilateral radial and pedal pulses, no murmur GI: Other: Soft, tender in the right lateral abdomen around to the right posterior flank, right CVA tenderness on percussion, normoactive bowel sounds, no organomegaly Skin: Other: Warm to touch, non jaundice, no pallor Neuro: Other: Alert and oriented, speech is clear, no facial asymmetry, no localizing neurologic deficits noted during the course of conversation Extrem: Other: No clubbing, cyanosis or edema Psych: Other: Appropriate mood and affect, pleasant and cooperative, judgment and insight intact Objective Data Vital Signs Vital Signs: Vital Signs - 24 hr 06/17/25 12:16 06/17/25 12:30 06/17/25 12:32 Temperature Pulse Rate 79 119 H Respiratory Rate 16 16 Blood Pressure 115/78 115/78 Pulse Oximetry 98 98 100 Oxygen Delivery 06/17/25 13:01 06/17/25 13:02 06/17/25 14:00 Temperature Pulse Rate 92 110 H 113 H Respiratory Rate 16 16 Blood Pressure 112/78 112/70 Pulse Oximetry 93 91 96 Oxygen Delivery 06/17/25 14:47 06/17/25 15:05 06/17/25 15:16 Temperature Pulse Rate 111 H Respiratory Rate 16 Blood Pressure 110/81 114/75 Pulse Oximetry 95 96 95 Oxygen Delivery 06/17/25 15:17 06/17/25 15:45 06/17/25 17:33 Temperature 39.4 C H 37.6 C Pulse Rate 112 H 104 H Respiratory Rate 16 16 Blood Pressure 101/66 96/58 L Pulse Oximetry 96 98 93 Oxygen Delivery 06/17/25 20:00 06/18/25 04:25 06/18/25 08:00 Temperature 36.9 C 36.8 C 39.3 C H Pulse Rate 92 101 H 99 Respiratory Rate 17 17 14 Blood Pressure 95/50 L 96/56 L 103/59 L Pulse Oximetry 97 95 94 Oxygen Delivery 06/18/25 08:30 06/18/25 11:34 Temperature Pulse Rate Respiratory Rate Blood Pressure Pulse Oximetry 97 Oxygen Delivery Room Air Room Air Intake/Output Intake/Output: Intake & Output 06/15/25 06/16/25 06/17/25 06/18/25 23:59 23:59 23:59 23:59 Intake Total 2049 3710.4 Balance 2049 3710.4 Meds/Results Medications: Active Medications Generic Name Dose Route Start Last Admin Trade Name Freq PRN Reason Stop Dose Admin Acetaminophen 650 mg 06/17/25 15:35 06/17/25 16:03 Acetaminophen 325 Mg Tablet PO 650 mg Q4H PRN Administration Mild Pain (1-3) or Fever Hydrocodone Bitart/Acetaminophen 1 tab 06/17/25 18:44 06/18/25 10:02 Hydrocodone/Acetaminophen (*Crx) 5-325 Mg Tablet PO 1 tab Q4H PRN Administration Pain Rated 4-6 Baclofen 10 mg 06/17/25 20:30 Baclofen 10 Mg Tablet PO BID PRN MUSCLE PAIN Bupropion HCl 300 mg 06/18/25 09:00 06/18/25 08:29 Bupropion Hcl Xl (24 Hr) 150 Mg Tabcr PO 300 mg DAILY EVERARDO Administration Bupropion HCl 150 mg 06/18/25 09:00 06/18/25 08:29 Bupropion Hcl Xl (24 Hr) 150 Mg Tabcr PO 150 mg DAILY EVERARDO Administration Buspirone HCl 10 mg 06/17/25 21:05 06/18/25 08:29 Buspirone Hcl 10 Mg Tablet PO 10 mg BID EVERARDO Administration Dicyclomine HCl 10 mg 06/17/25 20:30 06/17/25 23:29 Dicyclomine Hcl 10 Mg Capsule PO 10 mg TID PRN Administration abdominal discomfort Enoxaparin Sodium 40 mg 06/18/25 09:00 06/18/25 08:29 Enoxaparin 40 Mg/0.4 Ml Syringe SUB-Q Not Given DAILY EVERARDO Sodium Chloride 1,000 mls @ 125 mls/hr 06/17/25 15:35 06/18/25 08:29 Normal Saline Iv IV CONT 125 mls/hr .Q8H EVERARDO Administration Ceftriaxone Sodium 1 gm/ 50 mls @ 100 mls/hr 06/18/25 14:00 Sodium Chloride IVPB Q24H EVERARDO Linaclotide 145 mcg 06/18/25 09:00 06/18/25 08:29 Linaclotide 145 Mcg Capsule PO 145 mcg DAILY EVERARDO Administration Lorazepam 1 mg 06/17/25 21:05 06/18/25 08:29 Lorazepam (*Crx) 1 Mg Tablet PO 1 mg BID EVERARDO Administration Pantoprazole Sodium 40 mg 06/17/25 21:05 06/18/25 08:29 Pantoprazole 40 Mg Tablet PO 40 mg BID EVERARDO Administration Trazodone HCl 50 mg 06/17/25 21:05 06/17/25 21:30 Trazodone Hcl 50 Mg Tablet PO 50 mg QHS EVERARDO Administration Radiology Results: ITS Impressions Abdomen/Pelvis CT 06/17/25 13:28 IMPRESSION: 1. Mild proximal right urothelial enhancement, suspicious for ascending urinary tract infection. Clinically correlate. Labs Labs: Laboratory Results - last 24 hr 06/17/25 06/18/25 12:14 04:51 WBC 18.3 H 13.5 H RBC 4.86 3.90 L Hgb 14.7 11.8 L Hct 43.2 35.9 L MCV 88.9 92.1 MCH 30.2 30.3 MCHC 34.0 32.9 RDW 11.4 L 11.5 Plt Count 328 237 MPV 8.2 8.4 Immature Gran % (Auto) 0.7 H Neut % (Auto) 86.0 H Lymph % (Auto) 4.9 L [place] % (Auto) 8.1 Eos % (Auto) 0.0 Baso % (Auto) 0.3 Lymph # (Auto) 0.89 L [place] # (Auto) 1.5 H Eos # (Auto) 0.0 Baso # (Auto) 0.1 Abs Immat Gran (auto) 0.13 H Absolute Neuts (auto) 15.8 H Absolute Nucleated RBC 0.000 Nucleated RBC % 0.0 Sodium 132 L 132 L Potassium 3.9 4.0 Chloride 94 L 103 Carbon Dioxide 29 26 Anion Gap 9 3 L BUN 14 9 D Creatinine 1.00 0.92 Estim Creat Clear Calc 59 65 Estimated GFR 59 > 60 Glucose 115 H 89 Calcium 10.5 H 8.5 Total Bilirubin 0.8 AST 31 ALT 23 Alkaline Phosphatase 80 Total Protein 8.0 Albumin 4.9 Lipase 66 Urine Color Yellow Urine Appearance Clear Urine pH 5.5 Ur Specific [place] 1.017 Urine Protein Negative Urine Glucose (UA) Negative Urine Ketones 1+ H Ur Blood (Man) Negative Urine Nitrate Negative Urine Bilirubin Negative Urine Urobilinogen 0.2 Leukocyte Esterase Rfl 1+ H Urine RBC 0-2 Urine WBC 21-50 H Ur Squamous Epith Cells None seen Urine Bacteria 4+ H Urine Casts 0-2 Quality VTE Prophylaxis VTE prophylaxis: pharmacologic ordered (Lovenox 40 mg subQ daily)
[2025-06-18 14:00] VITALS: BP 104/62; PULSE 97; RESP 16; TEMP 36.7; O2SAT 97
[2025-06-18] MEDS: cefTRIAXone 1 GM in SODIUM CHLORIDE 0.9% IV 50 ML 100 ML IVPB (14:30)
[2025-06-18 19:45] VITALS: BP 95/53; PULSE 101; RESP 17; TEMP 37.1; O2SAT 98
[2025-06-18 20:00] VITALS: PULSE 101; RESP 17; O2SAT 98
[2025-06-19] MEDS: HYDROcodone/acetaminophen (*CRX) 5-325 MG TABLET 1 TAB PO ×2 (00:27→05:23)
[2025-06-19] MEDS: SODIUM CHLORIDE 0.9% IV 1,000 ML 125 ML IV CONT ×2 (01:14→08:17)
[2025-06-19 04:36] VITALS: BP 106/73; PULSE 88; RESP 18; TEMP 36.7; O2SAT 99
[2025-06-19 05:43] LABS: Hematocrit 36.1 % (37.0-47.0); Hemoglobin 11.8 g/dL (12.0-15.0); Immature Granulocyte Percent A 0.5 % (0-0.5); Lymphocytes Absolute Auto 1.36 K/mm3 (0.9-3.2); Mean Corpuscular HGB Conc 32.7 g/dl (32-36); Mean Corpuscular Hemoglobin 30.3 pg (26-34); Mean Corpuscular Volume 92.8 fl (80-100); Nucleated Red Blood Cells Absolute Auto 0.000 K/mm3 (0.0-0.012); Nucleated Red Blood Cells Perc 0.0 % (0.0-0.2); Platelet Count Result 245 k/mm3 (150-375); Red Blood Count 3.89 M/mm3 (4.2-5.4); White Blood Count 10.1 K/mm3 (4.5-10.0)
[2025-06-19 08:00] VITALS: BP 110/76; PULSE 68; RESP 16; TEMP 36.9; O2SAT 99
[2025-06-19] MEDS: LORazepam (*CRX) 1 MG TABLET PO (08:18)
[2025-06-19] MEDS: PANTOPRAZOLE 40 MG TABLET PO (08:18)
[2025-06-19] MEDS: LINACLOTIDE 145 MCG CAPSULE PO (08:18)
[2025-06-19] MEDS: buPROPion HCL XL (24 HR) 150 MG TABCR 300 MG PO (08:18)
[2025-06-19] MEDS: buPROPion HCL XL (24 HR) 150 MG TABCR PO (08:18)
[2025-06-19] MEDS: ENOXAPARIN 40 MG/0.4 ML SYRINGE SUB-Q (08:19)
--- NOTE | 2025-06-19 09:00 | PM.DS ---
DS: Admitting Diagnosis Discharge Date 06/19/2025 Admitting Diagnosis urinary tract infection DS: Discharge Diagnosis Discharge Diagnosis (1) Urinary tract infection: Qualifiers: Urinary tract infection type: acute pyelonephritis Qualified Code(s): N10 - Acute pyelonephritis Code(s): N39.0 - Urinary tract infection, site not specified Status: Acute (2) Sepsis: Qualifiers: Sepsis type: sepsis due to unspecified organism Sepsis acute organ dysfunction status: without acute organ dysfunction Qualified Code(s): A41.9 - Sepsis, unspecified organism Code(s): A41.9 - Sepsis, unspecified organism Status: Acute (3) Acute hyponatremia: Code(s): E87.1 - Hypo-osmolality and hyponatremia Status: Acute (4) Essential hypertension: Code(s): I10 - Essential (primary) hypertension Status: Acute (5) GERD (gastroesophageal reflux disease): Qualifiers: Esophagitis presence: without esophagitis Qualified Code(s): K21.9 - Gastro-esophageal reflux disease without esophagitis Code(s): K21.9 - Gastro-esophageal reflux disease without esophagitis Status: Acute Plan Ascending urinary tract infection with sepsis. Sepsis criteria met with fever, tachycardic in the setting of acute UTI. Blood cultures urine cultures have been obtained and are pending. Patient was started on empiric antibiotic therapy with Rocephin. Patient did have mild low systolic blood pressures she received 30 mL/kilos fluid bolus in the ER. Blood pressures have remained soft but are stable. Will continue maintenance IV fluids at 125 mL an hour. Will monitor I&O's closely. Will hold the patient's home lisinopril and spironolactone. Patient does have a history of overactive bladder and she may have some component of incomplete bladder emptying with this medication may have a precipitated her urinary tract infection. Will hold oxybutynin. Postvoid residual was 0. Will hold the patient's home lisinopril due to soft blood pressures. Will resume the patient's home psychiatric and GI medications. Code status Full DVT prophylaxis Lovenox DS: Summary Hospital Course Reason for hospitalization: UTI Hospital Course: 49 years old female was admitted complains of burning urination. Patient was found to have UTI. Patient was given Antibiotic. Today patient is feeling better. Patient was discharged home stable condition. Follow-up scheduled. Patient urine culture will be followed as an outpatient. Status at Discharge Cognitive/behavioral status at discharge: Stable Time Spent with Patient Time attestation: Total time spent providing and/or coordinating discharge services: 30 minutes Exam Narrative: Weight 76.4 BMI 29.8 Const: Other: Mildly ill-appearing, appears stated age, overweight HENMT: Other: Mucous membranes are tacky, no oral pharyngeal erythema, head is normocephalic atraumatic Eyes: Other: Pupils are equal and reactive, no conjunctival pallor, no scleral icterus Neck: Other: No JVD, no lymphadenopathy Resp: Other: Clear to auscultation bilaterally, no increased work of breathing Cardio: Other: Sinus tachycardia, 2+ bilateral radial and pedal pulses, no murmur GI: Other: Soft, tender in the right lateral abdomen around to the right posterior flank, right CVA tenderness on percussion, normoactive bowel sounds, no organomegaly Skin: Other: Warm to touch, non jaundice, no pallor Neuro: Other: Alert and oriented, speech is clear, no facial asymmetry, no localizing neurologic deficits noted during the course of conversation Extrem: Other: No clubbing, cyanosis or edema Psych: Other: Appropriate mood and affect, pleasant and cooperative, judgment and insight intact DS: Data Data Completed and Pending Labs on day of discharge: Labs from last 24 hours 06/19/25 05:00 WBC 10.1 H RBC 3.89 L Hgb 11.8 L Hct 36.1 L MCV 92.8 MCH 30.3 MCHC 32.7 RDW 11.3 L Plt Count 245 MPV 8.8 Immature Gran % (Auto) 0.5 Neut % (Auto) 72.4 Lymph % (Auto) 13.5 L [place] % (Auto) 11.4 H Eos % (Auto) 1.9 Baso % (Auto) 0.3 Lymph # (Auto) 1.36 [place] # (Auto) 1.2 H Eos # (Auto) 0.2 Baso # (Auto) 0.0 Abs Immat Gran (auto) 0.05 H Absolute Neuts (auto) 7.3 H Absolute Nucleated RBC 0.000 Nucleated RBC % 0.0 Preliminary micro results at discharge 06/17/25 12:14 - Preliminary Urine Clean Catch Gram negative bacilli isolated Discharge Plan Discharge Attending physician on discharge: Edwin Kidd Discharging Clinician: Edwin Kidd Patient Disposition: Home Activity: as tolerated Diet: as tolerated Patient Instructions: Antibiotic Form Patient Language: [place] Stand Alone Forms: General Discharge Information Follow-up/Referrals: Precious Marinelli PA-C [Primary Care Provider, [facility]] Discharge Medications: New sulfamethoxazole-trimethoprim [Bactrim DS] 800-160 mg tablet 1 tablet PO Q12H Qty: 14 0RF Continued trazodone 50 mg tablet 50 mg PO QHS buspirone 10 mg tablet 10 mg PO BID lorazepam 1 mg tablet 1 mg PO BID dicyclomine 10 mg capsule 10 mg PO TID PRN (Reason: abdominal discomfort) Qty: 90 11RF omeprazole 20 mg capsule,delayed release(DR/EC) See Rx Instructions .ROUTE .COMPLEX Qty: 180 3RF Dose Instruction: TAKE 1 CAPSULE BY MOUTH TWICE A DAY Rx Instructions: TAKE 1 CAPSULE BY MOUTH TWICE A DAY oxybutynin chloride 5 mg tablet 5 mg PO HS bupropion HCl 300 mg tablet extended release 24 hr 300 mg PO DAILY bupropion HCl 150 mg tablet extended release 24 hr 150 mg PO DAILY spironolactone 100 mg tablet 100 mg PO DAILY lisinopril 5 mg tablet See Rx Instructions .ROUTE .COMPLEX Qty: 90 3RF Dose Instruction: TAKE 1 TABLET BY MOUTH EVERY DAY Rx Instructions: TAKE 1 TABLET BY MOUTH EVERY DAY baclofen 10 mg tablet See Rx Instructions .ROUTE .COMPLEX Qty: 180 1RF Dose Instruction: TAKE 1 TABLET BY MOUTH TWICE A DAY NEEDED FOR PAIN Rx Instructions: TAKE 1 TABLET BY MOUTH TWICE A DAY NEEDED FOR PAIN Linzess 145 mcg capsule 145 mcg PO DAILY Qty: 30 1RF Date of admission: 06/17/25 15:35 Primary Care Provider: Precious Marinelli Admitting Provider: Dio Rodríguez Attending physician on admission: Dio Rodríguez Condition: Stable Quality VTE Prophylaxis VTE prophylaxis: pharmacologic ordered (Lovenox 40 mg subQ daily)
== END 2025-06-19 10:00 | disposition home or self-care (01) ==
LOC: ANHED 12:26 → ANH2MED 23:09
PROVIDERS: Internal Medicine; Physician Assistant; Admitting Provider Internal Medicine; Emergency Provider Emergency Medicine; PCP Student in an Organized Health Care Education/Training Program; Visit Provider Internal Medicine
DX: N10 Acute pyelonephritis (principal); A41.9 Sepsis, unspecified organism; E87.1 Hypo-osmolality and hyponatremia; I10 Essential (primary) hypertension; K21.9 Gastro-esophageal reflux disease without esophagitis; K58.9 Irritable bowel syndrome, unspecified; F31.9 Bipolar disorder, unspecified; F20.9 Schizophrenia, unspecified; F41.9 Anxiety disorder, unspecified; Z90.710 Acquired absence of both cervix and uterus; Z87.11 Personal history of peptic ulcer disease; B96.20 Unspecified Escherichia coli [E. coli] as the cause of diseases classified elsewhere
CPT/HCPCS: 36415; 74177; 80048; 80053; 81001; 83690; 85025; 85027; 87086; 87186; 96361; 96365; 96372; 96375; 99285; A9270; G0378; J0696; J1650; J1885; J2270; J2405; J7030; Q9967